=== PATIENT | female | born 1985 | race Caucasian/White ===

== ENCOUNTER 2018-10-14 19:53 | Emergency (ER) | payer OTHER ==
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
[2018-10-14] MEDS ORDERED: NA CHLORIDE 0.9% 1,000 ML ONE (22:38)
[2018-10-14] MEDS ORDERED: ONDANSETRON 4 MG/2 ML VIAL ONE (22:38)
[2018-10-14] MEDS ORDERED: TETANUS & DIPHTHERIA TOX,ADULT 0.5 ML VIAL ONE (22:38)
[2018-10-14] MEDS ORDERED: FENTANYL CITR 100 MCG/2 ML ONE (22:38)
[2018-10-14 23:01] LABS: Absolute Lymphocytes (CBC) 2.5 K/uL (0.7-4.9); Basophils % 0.5 % (0-1.3); Hematocrit 32.2 % (36.0-45.0); Lymphocytes % 28.1 % (15.3-44.8); MPV 7.8 fL (7.6-11.3)
[2018-10-14] MEDS ORDERED: CEFAZOLIN/SWI 1gm 0 GM/0 ML SYR ONE (23:12)
[2018-10-14 23:13] LABS: Potassium 3.7 mmol/L (3.5-5.1)
[2018-10-14] MEDS ORDERED: CEFAZOLIN SODIUM 1 GM/VIAL ONE (23:21)
[2018-10-14] MEDS ORDERED: NA CHLORIDE 0.9% 50 ML IV ONE (23:21)
[2018-10-15 00:06] LABS: Urine Blood 2+ (NEG); Urine Glucose NEGATIVE (NEG); Urine Protein NEGATIVE (NEG); Urine Specific Gravity <1.005 (1.005-1.030)
[2018-10-15] MEDS ORDERED: ONDANSETRON 4 MG/2 ML VIAL ONE (00:40)
[2018-10-15] MEDS ORDERED: FENTANYL CITR 100 MCG/2 ML ONE (00:40)
[2018-10-15] MEDS ORDERED: KETAMINE HCL 500 MG/5 ML VIAL ONE (00:42)
[2018-10-15] MEDS ORDERED: HYDROMORPHONE HCL 1 MG/ML INJ ONE (01:29)
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
[2018-10-15 02:40] VITALS: O2SAT 100
[2018-10-15 02:44] VITALS: TEMP 98.7
[2018-10-15 02:45] VITALS: BP 114/86
--- NOTE | 2018-10-15 08:23 | RAD REPORT ---
EXAM DESCRIPTION: RAD - Foot Left 3 View - 10/14/2018 10:49 pm CLINICAL HISTORY: PAIN Pain and swelling left leg COMPARISON: None FINDINGS: Left tibia/ fibula and foot - multiple projections are submitted Moderate soft tissue swelling is seen along the dorsum of the foot. No acute fracture or dislocation is seen. No radiopaque foreign body.
--- NOTE | 2018-10-15 10:18 | RAD REPORT ---
EXAM DESCRIPTION: RAD - Tib Fib Left - 10/14/2018 10:49 pm CLINICAL HISTORY: PAIN Pain and swelling left leg COMPARISON: None FINDINGS: Left tibia/ fibula and foot - multiple projections are submitted Moderate soft tissue swelling is seen along the dorsum of the foot. No acute fracture or dislocation is seen. No radiopaque foreign body.
== END 2018-10-15 02:24 | disposition home or self-care (01) ==
LOC: ER 19:53
PROC: 2W3RX1Z Immobilization of Left Lower Leg using Splint (ICD-10-PCS; principal; 2018-10-15)
DX: S92.151A Displaced avulsion fracture (chip fracture) of right talus, initial encounter for closed fracture (principal); S87.81XA Crushing injury of right lower leg, initial encounter; V03.90XA Pedestrian on foot injured in collision with car, pick-up truck or van, unspecified whether traffic or nontraffic accident, initial encounter; Y93.9 Activity, unspecified; Y92.9 Unspecified place or not applicable; F17.210 Nicotine dependence, cigarettes, uncomplicated; Z23 Encounter for immunization
CPT/HCPCS: 96365; 85025; 80048; 36415; 82550; 81003; 73630; 73590; 90471; 90714; 96375; 99284; 29515; J3010 ×2; J1170; J7030; J2405 ×2; J0690

== ENCOUNTER 2018-10-25 20:50 | Emergency (ER) | payer OTHER ==
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
--- OUTSIDE RECORDS SUMMARY | 2018-10-25 20:56 | XMS REPORT | Summary of Care ---
:1985 Author Organization [facility] Address [address] [place] [id number]- Encounter HQ Serge_pierce(FIN) [id number] Date(s): 06/13/15 - 06/13/[address] Professional Services provided by [facility] [place] [address]- Discharge Disposition: Home Attending Physician: Lj Ford MD Admitting Physician: Lj Ford MD Vital Signs Most recent to oldest [Reference Range]: 1 Height 160.02 cm (06/13/15 7:51 PM) Blood Pressure [90-140/60-90 mmHg] 112/67 mmHg (06/13/15 8:22 PM) Weight 59.091 kg (06/13/15 7:51 PM) Body Mass Index 23.08 m2 (06/13/15 7:51 PM) Problem List Condition Effective Dates Status Health Status Informant Chlamydia(Confirmed) Resolved Chronic anemia(Confirmed) Resolved Depression(Confirmed) Resolved (Confirmed) 01/20/13 - 2013 Resolved (Confirmed) 06/13/15 Active (Confirmed) 02/26/08 - 12/02/08 Resolved (Confirmed) 01/20/14 - 2014 Resolved (Confirmed) 01/20/132013 Resolved (Confirmed) 10/23/06 - 07/16/07 Resolved (Confirmed) 12/27/03 - 09/11/04 Resolved Allergies, Adverse Reactions, Alerts Substance Reaction Severity Status NKDA Active Medications No Known Medications Results No data available for this section Immunizations No data available for this section Procedures No data available for this section Social History Social History Type Response Alcohol Previous treatment: None.1 Smoking Status Never smoker; Exposure to Tobacco Smoke None; Cigarette Smoking Last 365 Days No; Reg Smoking Cessation Counseling No 1pt said is only social drink , she dennnies being alcoholic Assessment and Plan Extracted from: Title: OB H&P Author: Francoise Nair MD Date: 06/13/15 Impression and Plan A/P: 30yo at 39w0d dated by LMP and rep 1T luiso presents to triage c/o ctx 1. Latent labor: cervix is 4/50/-3 which is unchagned from clinic visit today per pt. Normal NOAH. BP normal range. Pt would like to go to [place] where her doctor delivers. 2. Reactive NST 3. Pt was discussed with Dr. Mcpherson. Discharge to home. Pt was given labor precautions. Francoise Nair, PGY3
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
--- OUTSIDE RECORDS SUMMARY | 2018-10-25 20:56 | XMS REPORT | Summary of Care ---
:1985 Author Organization [facility] Address [address] [place] [id number]- Encounter HQ Mekhintr_pierce(FIN) [id number] Date(s): 12/02/14 - 12/02/[address] Professional Services provided by [facility] [place] [address]- Discharge Diagnosis: Abdominal pain, lower Discharge Disposition: Home Attending Physician: Diana Torres MD Vital Signs Most recent to oldest [Reference Range]: 1 2 3 Height 160.02 cm (12/02/14 4:49 PM) Most recent to oldest 1 2 3 [Reference Range]: Temperature Oral [96.4-99.1 98 DegF 97.8 DegF 97.9 DegF DegF] (12/02/14 8:40 PM) (12/02/14 7:10 PM) (12/02/14 4:49 PM) Most recent to oldest [Reference Range]: 1 2 3 Blood Pressure [90-140/60-90 mmHg] 101/68 mmHg 116/71 mmHg (12/02/14 8:40 PM) (12/02/14 4:49 PM) Systolic Blood Pressure [90-140 mmHg] 119 mmHg (12/02/14 7:10 PM) Most recent to oldest [Reference Range]: 1 2 3 Diastolic Blood Pressure [60-90 mmHg] 69 mmHg (12/02/14 7:10 PM) Most recent to oldest 1 2 3 [Reference Range]: Respiratory Rate [14-20 18 BRMIN 18 BRMIN 20 BRMIN BRMIN] (12/02/14 8:40 PM) (12/02/14 7:10 PM) (12/02/14 4:49 PM) Most recent to oldest 1 2 3 [Reference Range]: Peripheral Pulse Rate 77 bpm 88 bpm 101 bpm [60-100 bpm] (12/02/14 8:40 PM) (12/02/14 7:10 PM) *HI* (12/02/14 4:49 PM) Most recent to oldest [Reference Range]: 1 2 3 Weight 50 kg (12/02/14 4:49 PM) Most recent to oldest [Reference Range]: 1 2 3 Body Mass Index 19.53 m2 (12/02/14 4:49 PM) Problem List Condition Effective Dates Status Health Status Informant Chronic anemia(Confirmed) Resolved Depression(Confirmed) Resolved Allergies, Adverse Reactions, Alerts Substance Reaction Severity Status NKDA Active Medications acetaminophen 650 mg, Route: PO, Drug form: TAB, ONCE, Dosing Weight 50, kg, Priority: STAT, Start date: 12/02/14 18:23:00, Stop date: 12/02/14 18:23:00 Start Date: 12/02/14 Stop Date: 12/02/14 Status: Completed Results URINE CHEM Most recent to oldest [Reference Range]: 1 U Preg [Negative] Positive *ABN* (12/02/14 7:01 PM) URINE AND STOOL Most recent to oldest [Reference Range]: 1 UA Turbidity [Clear] Clear (12/02/14 7:01 PM) UA Color [Yellow] Yellow *NA* (12/02/14 7:01 PM) UA pH [5.0-8.0] 6.0 (12/02/14 7:01 PM) UA Spec Grav [<=1.030] 1.020 (12/02/14 7:01 PM) UA Glucose [Negative mg/dL] Negative mg/dL (12/02/14 7:01 PM) UA Blood [Negative] Negative (12/02/14 7:01 PM) UA Ketones [Negative mg/dL] Negative mg/dL *NA* (12/02/14 7:01 PM) UA Protein [Negative mg/dL] Negative mg/dL (12/02/14 7:01 PM) UA Urobilinogen [0.1-1.0 EU/dL] 0.2 EU/dL (12/02/14 7:01 PM) UA Bili [Negative] Negative *NA* (12/02/14 7:01 PM) UA Leuk Est [Negative] Negative (12/02/14 7:01 PM) UA Nitrite [Negative] Negative (12/02/14 7:01 PM) UA WBC [None Seen /HPF] 0-2 /HPF (12/02/14 7:01 PM) UA RBC [0-2] None Seen (12/02/14 7:01 PM) UA Bacteria [None Seen /HPF] Occasional /HPF (12/02/14 7:01 PM) UA Sq Epi [Few /LPF] Few /LPF (12/02/14 7:01 PM) UA Mucus [None Seen /LPF] Few /LPF (12/02/14 7:01 PM) Micro? Not Indicated *NA* (12/02/14 7:01 PM) Immunizations No data available for this section Procedures No data available for this section Social History Social History Type Response Alcohol Previous treatment: None.1 Smoking Status Current every day smoker; Type: Cigarettes; Tobacco use per day : 1; Number of years: 2; Total pack years: 2; Started at age: 26.0; Stopped at age: 2; Previous treatment: None; Ready to change: No; Concerns about tobacco use in household: No; Exposure to Tobacco Smoke Unable to obtain; Cigarette Smoking Last 365 Days Yes; Reg Smoking Cessation Counseling No 1pt said is only social drink , she dennnies being alcoholic Assessment and Plan No data available for this section
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
--- OUTSIDE RECORDS SUMMARY | 2018-10-25 20:56 | XMS REPORT | Summary of Care ---
:1985 Author Organization [facility] Address [address] [place] [id number]- Encounter HQ Encntr_alidaphne(FIN) [id number] Date(s): 08/12/17 - 08/13/[address] Professional Services provided by [facility] [place] [address]- Discharge Disposition: Left Without Being Seen Attending Physician: Federico Wseley DO Vital Signs Most recent to oldest [Reference Range]: 1 Height 160.02 cm (08/12/17 8:34 PM) Temperature Oral [96.4-99.1 DegF] 97.5 DegF (08/12/17 8:34 PM) Blood Pressure [90-140/60-90 mmHg] 122/76 mmHg (08/12/17 8:34 PM) Respiratory Rate [14-20 BRMIN] 18 BRMIN (08/12/17 8:34 PM) Peripheral Pulse Rate [60-100 bpm] 105 bpm *HI* (08/12/17 8:34 PM) Weight 56.818 kg (08/12/17 8:34 PM) Body Mass Index 22.19 m2 (08/12/17 8:34 PM) Problem List Condition Effective Dates Status Health Status Informant Chlamydia(Confirmed) Resolved Chronic anemia(Confirmed) Resolved Depression(Confirmed) Resolved (Confirmed) 01/20/13 - 2013 Resolved (Confirmed) 06/13/15 - 08/24/15 9:10 AM Resolved (Confirmed) 02/26/08 - 12/02/08 Resolved (Confirmed) 01/20/14 - 2014 Resolved (Confirmed) 01/20/132013 Resolved (Confirmed) 10/23/06 - 07/16/07 Resolved (Confirmed) 12/27/03 - 09/11/04 Resolved Allergies, Adverse Reactions, Alerts Substance Reaction Severity Status penicillins Active Medications No data available for this section Results No data available for this section [...] 26.0; Stopped at age: 2; entered on: 08/10/17 1pt said is only social drink , she dennnies being alcoholic Assessment and Plan No data available for this section
--- OUTSIDE RECORDS SUMMARY | 2018-10-25 20:56 | XMS REPORT ---
:1985 Author Organization [facility] Address [address] [place] [address] Dr. Truong[address] [place] [id number] Care Team Providers Name Role Phone Unavailable Unavailable Unavailable Problems This patient has no known problems. Allergies, Adverse Reactions, Alerts This patient has no known allergies or adverse reactions. Medications This patient has no known medications.
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
--- OUTSIDE RECORDS SUMMARY | 2018-10-25 20:56 | XMS REPORT | Summary of Care ---
:1985 Author Organization [facility] Address [address] [place] [id number] Encounter HQ Encntr_alias(FIN) [id number] Date(s): 08/10/17 - 08/11/[address] Professional Services provided by [facility] [place] [address]- Encounter Diagnosis Exposed orthopaedic hardware (Discharge Diagnosis) - 08/10/17 Discharge Disposition: Home or Self Care Attending Physician: Tori Flores MD Vital Signs Most recent to oldest 1 2 3 [Reference Range]: Height 160.02 cm (08/10/17 7:50 PM) Temperature Oral [96.4-99.1 98.2 DegF 98.4 DegF 98.9 DegF DegF] (08/11/17 1:22 AM) (08/10/17 9:21 PM) (08/10/17 7:50 PM) Blood Pressure [90-140/60-90 105/68 mmHg 107/62 mmHg 105/68 mmHg mmHg] (08/11/17 1:22 AM) (08/10/17 11:20 PM) (08/10/17 9:21 PM) Respiratory Rate [14-20 BRMIN] 18 BRMIN 18 BRMIN 18 BRMIN (08/11/17 1:22 AM) (08/10/17 11:20 PM) (08/10/17 9:21 PM) Peripheral Pulse Rate [60-100 84 bpm 76 bpm 70 bpm bpm] (08/11/17 1:22 AM) (08/10/17 11:20 PM) (08/10/17 9:21 PM) Weight 54.545 kg (08/10/17 7:50 PM) Body Mass Index 21.3 m2 (08/10/17 7:50 PM) Problem List Condition Effective Dates Status Health Status Informant Chlamydia(Confirmed) Resolved Chronic anemia(Confirmed) Resolved Depression(Confirmed) Resolved (Confirmed) 01/20/13 - 2013 Resolved (Confirmed) 06/13/15 - 08/24/15 9:10 AM Resolved (Confirmed) 02/26/08 - 12/02/08 Resolved (Confirmed) 01/20/14 - 2014 Resolved (Confirmed) 01/20/132013 Resolved (Confirmed) 10/23/06 - 07/16/07 Resolved (Confirmed) 12/27/03 - 09/11/04 Resolved Allergies, Adverse Reactions, Alerts Substance Reaction Severity Status penicillins Active Medications clindamycin 300 mg oral capsule 300 mg=1 cap, PO, Q6H, X 14 day, # 56 cap, 0 Refill(s) Start Date: 08/11/17 Stop Date: 08/25/17 Status: Orderedmorphine Sulfate 4 mg, Route: IVP, ONCE, Dosing Weight 54.545, kg, Priority: STAT, Start date: 22:17:00 CDT,Stop date: 08/10/17 22:17:00 CDT Start Date: 08/10/17 Stop Date: 08/10/17 Status: Completedondansetron 4 mg, Route: IVP, Drug form: INJ, ONCE, Dosing Weight 54.545, kg, Priority: STAT , Start date: 08/10/17 22:17:00 CDT, Stop date: 08/10/17 22:17:00 CDT Start Date: 08/10/17 Stop Date: 08/10/17 Status: CompletedPeridex 0.12% topical liquid 0.018 gm=15 mL, PO, BID, swish and spit; do not swallow, # 480 mL, 0 Refill(s) Start Date: 08/11/17 Status: OrderedPeridex 0.12% topical liquid 15 ml, Route: S&SPIT, ONCE, Drug form: LIQ, Start date: 08/10/17 23:05:00 CDT, Stop date: 08/10/17 23:05:00 CDT Notes: (Same As: Peridex) Start Date: 08/10/17 Stop Date: 08/11/17 Status: CompletedUnasyn 3 gm, Route: IVPB, ONCE, Dosing Weight 54.545, kg, Priority: STAT, Start date: 08/10/17 23:04:00 CDT, Stop date: 08/10/17 23:04:00 CDT Start Date: 08/10/17 Stop Date: 08/10/17 Status: Discontinued Results ELECTROLYTES Most recent to oldest [Reference Range]: 1 Sodium Lvl [135-145 mEq/L] 140 mEq/L (08/10/17 10:13 PM) Potassium Lvl [3.5-5.1 mEq/L] 3.7 mEq/L (08/10/17 10:13 PM) Chloride Lvl [95-109 mEq/L] 104 mEq/L (08/10/17 10:13 PM) CO2 [24-32 mEq/L] 24 mEq/L (08/10/17 10:13 PM) AGAP [10.0-20.0 mEq/L] 15.7 mEq/L (08/10/17 10:13 PM) CHEM PANEL Most recent to oldest [Reference Range]: 1 Creatinine Lvl [0.50-1.40 mg/dL] 1.10 mg/dL (08/10/17 10:13 PM) eGFR 68 mL/min/1.73m2 1 *NA* (08/10/17 10:13 PM) BUN [7-22 mg/dL] 14 mg/dL (08/10/17 10:13 PM) Glucose Lvl [70-99 mg/dL] 89 mg/dL (08/10/17 10:13 PM) Calcium Lvl [8.5-10.5 mg/dL] 9.0 mg/dL (08/10/17 10:13 PM) 1Result Comment: The eGFR is calculated [...] eGFR should be multiplied by the estimated BMI.URINE CHEM Most recent to oldest [Reference Range]: 1 U Preg [Negative] Negative (08/11/17 12:08 AM) URINE AND STOOL Most recent to oldest [Reference Range]: 1 UA Turbidity [Clear] Slight Cloudy (08/11/17 12:08 AM) UA Color [Yellow] Yellow *NA* (08/11/17 12:08 AM) UA pH [5.0-8.0] 6.0 (08/11/17 12:08 AM) UA Spec Grav [<=1.030] <=1.005 *NA* (08/11/17 12:08 AM) UA Glucose [Negative] Negative (08/11/17 12:08 AM) UA Blood [Negative] Moderate *ABN* (08/11/17 12:08 AM) UA Ketones [Negative] Trace *ABN* (08/11/17 12:08 AM) UA Protein [Negative] Negative (08/11/17 12:08 AM) UA Urobilinogen [0.1-1.0 EU/dL] 0.2 EU/dL (08/11/17 12:08 AM) UA Bili [Negative] Negative *NA* (08/11/17 12:08 AM) UA Leuk Est [Negative] Negative (08/11/17 12:08 AM) UA Nitrite [Negative] Negative (08/11/17 12:08 AM) UA WBC [None Seen /HPF] 0-2 /HPF (08/11/17 12:08 AM) UA RBC [0-2 /HPF] 0-2 /HPF (08/11/17 12:08 AM) UA Bacteria [None Seen /HPF] Occasional /HPF (08/11/17 12:08 AM) UA Sq Epi [Few /LPF] Moderate /LPF *ABN* (08/11/17 12:08 AM) UA Mucus Occasional *NA* (08/11/17 12:08 AM) HEMATOLOGY Most recent to oldest [Reference Range]: 1 WBC [3.7-10.4 K/CMM] 7.7 K/CMM (08/10/17 10:13 PM) RBC [4.20-5.40 M/CMM] 5.26 M/CMM (08/10/17 10:13 PM) Hgb [12.0-16.0 g/dL] 14.8 g/dL (08/10/17 10:13 PM) Hct [36.0-48.0 %] 44.6 % (08/10/17 10:13 PM) MCV [80.0-98.0 fL] 84.8 fL (08/10/17 10:13 PM) MCH [27.0-31.0 pg] 28.2 pg (08/10/17 10:13 PM) MCHC [32.0-36.0 g/dL] 33.3 g/dL (08/10/17 10:13 PM) RDW [11.5-14.5 %] 15.3 % *HI* (08/10/17 10:13 PM) MPV [7.4-10.4 fL] 7.0 fL *LOW* (08/10/17 10:13 PM) Platelet [133-450 K/CMM] 224 K/CMM (08/10/17 10:13 PM) Segs [45.0-75.0 %] 50.5 % (08/10/17 10:13 PM) Lymphocytes [20.0-40.0 %] 41.9 % *HI* (08/10/17 10:13 PM) Monocytes [2.0-12.0 %] 5.6 % (08/10/17 10:13 PM) Eosinophils [0.0-4.0 %] 1.4 % (08/10/17 10:13 PM) Basophils [0.0-1.0 %] 0.6 % (08/10/17 10:13 PM) Segs-Bands # [1.5-8.1 K/CMM] 3.9 K/CMM (08/10/17 10:13 PM) Lymphocytes # [1.0-5.5 K/CMM] 3.2 K/CMM (08/10/17 10:13 PM) Monocytes # [0.0-0.8 K/CMM] 0.4 K/CMM (08/10/17 10:13 PM) Eosinophils # [0.0-0.5 K/CMM] 0.1 K/CMM (08/10/17 10:13 PM) PT [12.0-14.7 seconds] 13.5 seconds (08/10/17 10:13 PM) INR [0.85-1.17] 1.03 (08/10/17 10:13 PM) PTT [22.9-35.8 seconds] 31.0 seconds (08/10/17 10:13 PM) Immunizations No data available for this section Procedures No data available for this section Social History Social History Type Response Alcohol Previous treatment: None.1 Smoking Status Current every day smoker; Type: Cigarettes; Previous treatment : None; Ready to change: No; Concerns about tobacco use in household: No; Exposure to Tobacco Smoke Unable to obtain; Cigarette Smoking Last 365 Days Yes ; [place] Cessation Counseling No; Tobacco use per day: 1; Number of years: 2; Total pack years: 2; Started at age: 26.0; Stopped at age: 2; entered on: 08/10/17 1pt said is only social drink , she dennnies being alcoholic Assessment and Plan No data available for this section
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
[2018-10-25] MEDS ORDERED: HYDROCODONE/APAP 10/325 TAB ONE (23:29)
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
--- NOTE | 2018-10-25 23:51 | EDPHYS ---
Physician Documentation [facility] Name: David Lira Age: 33 yrs Sex: Female : 1985 Arrival Date: 10/25/2018 Time: 20:55 Bed 13 Private MD: ED Physician Bunny Camp HPI: 10/25 23:36 This 33 yrs old Female presents to ER via Wheelchair with complaints of Leg gs Infection. 23:36 The complaints affect the left russell and anterior aspect of left ankle. Context: INJURY gs 12 DAYS AGO AVULSION FRACTURE LEFT TALUS, FULL THICKNESS ABRASION FROM FOOT TO LEG, DRAINAGE FORM WOUND AROUND ANKLE NO FEVER PAIN. Onset: The symptoms/episode began/occurred 12 day(s) ago. Associated signs and symptoms: Pertinent negatives fever, numbness, warmth. Severity of symptoms: At their worst the symptoms were severe, in the emergency department the symptoms are unchanged. 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 - Social history:: Smoking status: Patient uses tobacco products, smokes one-half pack cigarettes per day. - Ebola Screening: : Patient denies travel to an Ebola-affected area in the 21 days before illness onset. ROS: 23:36 All other systems are negative. gs Exam: 23:36 Head/Face: Normocephalic, atraumatic. Eyes: Pupils equal round and reactive to light, gs extra-ocular motions intact. Lids and lashes normal. Conjunctiva and sclera are non-icteric and not injected. Cornea within normal limits. Periorbital areas with no swelling, redness, or edema. ENT: Nares patent. No nasal discharge, no septal abnormalities noted. Tympanic membranes are normal and external auditory canals are clear. Oropharynx with no redness, swelling, or masses, exudates, or evidence of obstruction, uvula midline. Mucous membranes moist. Neck: Trachea midline, no thyromegaly or masses palpated, and no cervical lymphadenopathy. Supple, full range of motion without nuchal rigidity, or vertebral point tenderness. No Meningismus. Chest/axilla: Normal chest wall appearance and motion. Nontender with no deformity. No lesions are appreciated. Cardiovascular: Regular rate and rhythm with a normal S1 and S2. No gallops, murmurs, or rubs. Normal PMI, no JVD. No pulse deficits. Respiratory: Lungs have equal breath sounds bilaterally, clear to auscultation and percussion. No rales, rhonchi or wheezes noted. No increased work of breathing, no retractions or nasal flaring. Abdomen/GI: Soft, non-tender, with normal bowel sounds. No distension or tympany. No guarding or rebound. No evidence of tenderness throughout. Back: No spinal tenderness. No costovertebral tenderness. Full range of motion. Neuro: Awake and alert, GCS 15, oriented to person, place, time, and situation. Cranial nerves II-XII grossly intact. Motor strength 5/5 in all extremities. Sensory grossly intact. Cerebellar exam normal. Normal gait. 23:36 Constitutional: The patient appears alert, awake, uncomfortable. 23:36 Musculoskeletal/extremity: Extremities: noted in the dorsum of left foot: swelling, Pulses: TRIPHASIC PULSES DOPPLERED DP AND PT. 23:36 Skin: injury, abrasion(s), large abrasion noted, SEVERE PARTIAL AND SOME FULL THICKNESS, AREA ON LEG IS DRY AND GRANULATING WELL OVER ANKLE AND FOOT FIBRINOUS EXUDATE IS MILDLY SOUPY AND NOT GRANULATING WELL. Vital Signs: 21:22 BP 147 / 90; Pulse 85; Resp 18; Temp 98.2; Pulse Ox 100% on R/A; Weight 54.43 kg (R); aj1 Height 5 ft. 4 in. (162.56 cm) (R); Pain 10/10; 22:30 BP 147 / 86; Pulse 71; Resp 18; Pulse Ox 100% ; ea 23:50 BP 115 / 92; Pulse 85; Resp 18; Temp 98; Pulse Ox 99% ; ea 21:22 Body Mass Index 20.60 (54.43 kg, 162.56 cm) aj1 MDM: 23:04 Patient medically screened. gs 23:36 Differential diagnosis: CELLULITIS, FULL THICKNESS ABRASION. Data reviewed: vital gs signs, nurses notes. Counseling: I had a detailed discussion with the patient and/or guardian regarding: the historical points, exam findings, and any diagnostic results supporting the discharge/admit diagnosis, the need for outpatient follow up, a plastic surgeon, PT NEED AT THE VERY LEAST WOUND CARE AND POSSIBLY SKIN GRAFT DR HERNANDEZ WILL SEE IN OFFICE IN AM, WILL DECIDE SURGERY V. WOUND CARE I WILL PUT ON ABX IN MEANTIME.. Administered Medications: 23:31 Drug: [place] 10 mg-325 mg 1 tabs {Note: RASS 1.} Route: PO; ea 10/26 00:00 Follow up: Response: No adverse reaction; Pain is decreased; RASS: Restless (+1) 10/25 23:56 Drug: KeFLEX 1000 mg Route: PO; ea 10/26 00:00 Follow up: Response: Medication administered at discharge. Disposition: 10/25/18 23:50 Discharged to Home. Impression: FULL THICKNESS ABBRASION WITH CELLULITIS. - Condition is Stable. - Discharge Instructions: Form - Return To School, Wound Infection, Usxu-ru-Drog, Mechanical Wound Debridement. - Prescriptions for Keflex 500 mg Oral Capsule - take 1 capsule by ORAL route every 8 hours for 10 days; 30 capsule. Tylenol- Codeine #4 300-60 mg Oral Tablet - take 1 tablet by ORAL route every 6 hours As needed; 12 tablet. - School release form, Medication Reconciliation Form, Thank You Letter, Antibiotic Education, Prescription Opioid Use form. - Follow up: Miguel Angel Hernandez MD; When: 2 - 3 days; Reason: Re-evaluation by your physician. Signatures: Emma Villeda RN RN aj1 Stephany Cuellar RN RN ea Starr, Gregory, MD MD Corrections: (The following items were deleted from the chart) 00:12 10/25 23:50 10/25/2018 23:50 Discharged to Home. Impression: FULL THICKNESS ABBRASION ea WITH CELLULITIS. Condition is Stable. Forms are Medication Reconciliation Form, Thank You Letter, Antibiotic Education, Prescription Opioid Use. Follow up: Miguel Angel Hernandez; When: 2 - 3 days; Reason: Re-evaluation by your physician. gs
[2018-10-25] MEDS ORDERED: CEPHALEXIN 250 MG CAP ONE (23:55)
[2018-10-26 11:25] VITALS: BP 115/92; TEMP 98; O2SAT 99
== END 2018-10-26 00:12 | disposition home or self-care (01) ==
LOC: ER 20:50
DX: L03.116 Cellulitis of left lower limb (principal); F17.210 Nicotine dependence, cigarettes, uncomplicated
CPT/HCPCS: 99284

== ENCOUNTER 2019-01-02 14:07 | Emergency (ER) | payer OTHER ==
--- OUTSIDE RECORDS SUMMARY | 2019-01-02 14:11 | XMS REPORT ---
:1985 [facility] Address [address] [place] [address] [address] Care Team Providers Name Role Phone Unavailable Unavailable Unavailable Problems This patient has no known problems. Allergies, Adverse Reactions, Alerts This patient has no known allergies or adverse reactions. Medications This patient has no known medications. Encounters Start End Encounter Admission Attending Care Care Encounter Date/Time Date/Time Type Type Clinicians Facility Department ID 2017-05-18 2017-05-18 Emergency [facility] [id number] 21:12:59 21:12:59 2017-05-18 2017-05-18 Emergency [facility] [id number] 20:57:00 20:57:00
--- OUTSIDE RECORDS SUMMARY | 2019-01-02 14:11 | XMS REPORT | Summary of Care ---
:1985 Author Organization [facility] Address [address] [place] [id number] Care Team Providers Name Role Phone Pcp, Patient Does Not Have A Primary Care Provider Reason for Referral Radiology Services (STAT) Status Reason Specialty Diagnoses / Referred By Referred To Procedures Contact Contact New Request Diagnostic Diagnoses Pain [place], [place] Radiology Procedures XR TIBIA FIBULA 2 VW LEFT MD Iggy [address] [place] [address] Radiology Services (STAT) Status Reason Specialty Diagnoses / Referred By Referred To Procedures Contact Contact New Request Diagnostic Diagnoses Pain [place], [place] Radiology Procedures XR FOOT 3+ VW LEFT MD Igg[address] [place] [address] Radiology Services (STAT) Status Reason Specialty Diagnoses / Referred By Referred To Procedures Contact Contact New Request Diagnostic Diagnoses Pain [place], [place] Radiology Procedures XR TIBIA FIBULA 2 VW LEFT MD [address]y [address] [place] [phone] Radiology Services (STAT) Status Reason Specialty Diagnoses / Referred By Referred To Procedures Contact Contact New Request Diagnostic Diagnoses Pain [place], [place] Radiology Procedures XR FOOT 3+ VW LEFT MD Iggy [address] [place] [phone] Reason for Visit Reason Comments Leg Pain Encounter Details Date Type Department Care Team Description 10/27/2018 - Emergency ADC-Emergency Lexx Jiménez, Pain (Primary Dx); 10/28/2018 Department MD Healing scar; [address] [place] [address] Injury of left ankle, subsequent encounter; [place] [address] [id number] Crushing injury of left foot, subsequent encounter [phone] [facility] [place] [address] [phone] Allergies Active Allergy Reactions Severity Noted Date Comments Penicillin G Rash 06/16/2015 Penicillins Rash 05/04/2007 documented as of this encounter (statuses as of 10/28/2018) Medications Medication Sig Dispensed Refills Start Date [...] Rh negative state in antepartum period, Liveborn infant, of monet , born in [...] Abrasion of left lower leg, initial encounter traMADol (ULTRAM) 50 Take 1 tablet by 20 tablet 0 10/28/2018 Active mg tabletIndications: mouth every 6 Injury of left ankle, (six) hours as subsequent encounter, needed for Pain Crushing injury of (scale 7-10). left foot, subsequent encounter documented as of this encounter (statuses as of 10/28/2018) Active Problems Problem Noted Date 38 weeks gestation of 06/26/2018 Rh negative state in antepartum period 06/26/2018 Liveborn , of monet , born in hospital by vaginal 2018 delivery Normal labor 06/16/2015 Normal delivery 07/16/2007 Counseling on substance use and abuse 05/14/2007 Other sign and symptom in breast 05/14/2007 Personal history of tobacco use, presenting hazards to health 05/14/2007 High-risk 05/14/2007 Overview: ICD10 Diagnosis Term Clinical Mental Health Counselor Utility Personal history of allergy to other specified medicinal agents 05/14/2007 Overview: Codeine (rash/urticaria) PCN (rash/urticaria) Rhesus isoimmunization affecting management of mother, antepartum 05/04/2007 condition documented as of this encounter (statuses as of 10/28/2018) Resolved Problems Problem Noted Date Resolved Date Premature delivery before 37 weeks 03/12/2016 06/26/2018 demise > 22 weeks, delivered, current hospitalization 03/12/20162018 Urinary tract infection, site not specified 05/14/2007 06/26/2018 Cannabis dependence, episodic 05/14/2007 06/26/2018 Chlamydia trachomatis infection of anus and rectum 05/14/2007 06/26/2018 Antepartum drug dependence 05/14/2007 06/26/2018 Overview: ICD10 Diagnosis Term Clinical Mental Health Counselor Utility Nausea without vomiting 05/14/2007 06/26/2018 Overview: ICD10 Diagnosis Term Clinical Mental Health Counselor Utility Nausea with vomiting 05/14/2007 06/26/2018 Supervision of other normal 05/14/2007 06/26/2018 Surveillance of previously prescribed intrauterine 05/14/2007 06/26/2018 contraceptive device Hemorrhage in early , antepartum 05/04/2007 06/26/2018 Overview: ICD10 Diagnosis Term Clinical Mental Health Counselor Utility Chlamydia trachomatis infection of lower genitourinary sites 05/04/200706/26 Threatened premature labor, antepartum(644.03) 05/04/2007 06/26/2018 Vaginitis and vulvovaginitis 05/04/2007 06/26/2018 Overview: ICD10 Diagnosis Term Clinical Mental Health Counselor Utility documented as of this encounter (statuses as of 10/28/2018) Immunizations Name Administration Dates Next Due Influenza [...] Sign Reading Time Taken Comments Blood Pressure 123/76 10/27/2018 11:30 PM CDT Pulse 93 10/27/2018 11:30 PM CDT Temperature 37 C (98.6 F) 10/27/2018 9:27 PM CDT Respiratory Rate 20 10/27/2018 11:30 PM CDT Oxygen Saturation 100% 10/27/2018 11:30 PM CDT Inhaled Oxygen Concentration - - Weight 54.4 kg (120 lb) 10/27/2018 9:27 PM CDT Height - - Body Mass Index 21.26 08/24/2018 2:49 PM CDT documented in this encounter Discharge Instructions Lexx Novak MD - 10/28/2018 DIAGNOSIS Diagnoses that have been ruled out: None Diagnoses that are still under consideration: None Final diagnoses: Pain Healing scar Injury of left ankle, subsequent encounter Crushing injury of left foot, subsequent encounter NO LIFE-THREATENING FINDINGS ON TODAY'S EXAM. PROCEDURES IN THE ER TODAY: Orders Placed This Encounter Procedures XR FOOT 3+ VW LEFT XR TIBIA FIBULA 2 VW LEFT MEDICATIONS ADMINISTERED IN THE ER TODAY AND DISCHARGE MEDICATIONS: Orders Placed This Encounter Medications HYDROcodone-acetaminophen (NORCO) 10-325 mg tablet 1 tablet traMADol (ULTRAM) 50 mg tablet FOLLOW-UP RECOMMENDATIONS: RECOMMEND FOLLOW-UP WITH YOUR PRIMARY CARE PROVIDER OR WITH DR CISSE, ORTHOPEDIC BULK SEALER RETURN TO ER FOR WORSENING OF SYMPTOMS documented in this encounter Plan of Treatment Date Type Specialty Care Team Description 11/23/2018 Office Visit Obstetrics & Gynecology Aurea Martínez MD [address] [place] [address] [address] [place] [address] [phone] 12/30/2018 Office Visit Obstetrics & Gynecology Aurea Martínez MD [address] [place] [address] [address] [place], [place] [address] Name Type Priority Associated Diagnoses Date/Time XR FOOT 3+ VW LEFT IMAGING STAT Pain 10/27/2018 10:49 PM CDT XR TIBIA FIBULA 2 VW IMAGING STAT Pain 10/27/2018 10:49 PM CDT LEFT Health Maintenance Due Date Last Done Comments PNEUMOCOCCAL 0-64 YEARS COMBINED 05/07/1993 SERIES (1 of 1 - PPSV23) VARICELLA VACCINES (1 of 2 - 13+ 05/07/2000 2-dose series) DTaP,Tdap,and Td Vaccines (1 - 05/07/2006 Tdap) PAP SMEAR 08/24/2011 08/23/2008, 12/05/2006, 07/19/2004, Additional history exists INFLUENZA VACCINE (#1) 2018 05/05/2007 documented as of this encounter Procedures Procedure Name Priority Date/Time Associated Diagnosis Comments XR TIBIA FIBULA 2 VW STAT 10/27/2018 10:49 PM CDT Pain LEFT Procedure Note - [facility], Radiant Results Inft User - 10/27/2018 11:13 PM CDT EXAM: XR TIBIA FIBULA 2 VW LEFT, XR FOOT 3+ VW LEFT HISTORY: injury COMPARISON: 10/11/2018 to the radiograph FINDINGS: Radiographs of the left tibia, fibula, and foot demonstrate no acute fracture or dislocation. The joint spaces are maintained. Splinting of the lower leg/foot is noted which limits evaluation for subtle abnormalities. No soft tissue abnormality is seen. IMPRESSION No acute bony abnormality. XR FOOT 3+ VW LEFT STAT 10/27/2018 10:49 PM CDT Pain Procedure Note - [facility], Radiant Results Inft User - 10/27/2018 11:13 PM CDT EXAM: XR TIBIA FIBULA 2 VW LEFT, XR FOOT 3+ VW LEFT HISTORY: injury COMPARISON: 10/11/2018 to the radiograph FINDINGS: Radiographs of the left tibia, fibula, and foot demonstrate no acute fracture or dislocation. The joint spaces are maintained. Splinting of the lower leg/foot is noted which limits evaluation for subtle abnormalities. No soft tissue abnormality is seen. IMPRESSION No acute bony abnormality. documented in this encounter Results Not on filedocumented in this encounter Visit Diagnoses Diagnosis Pain - Primary Generalized pain Healing scar Scar condition and fibrosis of skin Injury of left ankle, subsequent encounter Crushing injury of left foot, subsequent encounter documented in this encounter Administered Medications Medication Order MAR Action Action Date Dose Rate Site cephALEXin (KEFLEX) capsule 500 Given 10/28/2018 12:51 AM CDT 500 mg mg 500 mg, Oral, Q6H, First dose on Fri10/28/18 at 0600, Until Discontinued, LEXA, Reason for Anti-Infective: Empiric Therapy for Suspected Infection, Empiric Therapy Site: Skin / Soft tissue, Duration of therapy: 7 days Medication Order MAR Action Action Date Dose Rate Site HYDROcodone-acetaminophen Given 10/28/2018 12:38 AM CDT 1 tablet (NORCO) 10-325 mg tablet 1 tablet 1 tablet, Oral, ONCE NOW, 1 dose, Fri10/28/18 at 0145, Routine documented in this encounter Insurance Payer Benefit Plan / Subscriber ID Effective Phone Address Type Group [facility] xxxxxxxxx 2015-Pres [address] Medicaid HEALTH CHOICE - HEALTH CHOICE ent [id number] MANAGED MEDICAID [place], [place] [id number] documented as of this encounter
[2019-01-02] MEDS ORDERED: NA CHLORIDE 0.9% 1,000 ML ONE ×2 (15:40→16:21)
[2019-01-02 15:45] LABS: Absolute Lymphocytes (CBC) 1.2 K/uL (0.7-4.9); Basophils % 0.5 % (0-1.3); Hematocrit 24.8 % (36.0-45.0); Lymphocytes % 12.6 % (15.3-44.8)
[2019-01-02 15:57] LABS: Urine Blood 1+ (NEG); Urine Glucose NEGATIVE (NEG); Urine Protein NEGATIVE (NEG); Urine Specific Gravity <1.005 (1.005-1.030)
[2019-01-02 16:02] LABS: Potassium 3.7 mmol/L (3.5-5.1)
[2019-01-02] MEDS ORDERED: CEFTRIAXONE/SWI 1gm 1 GM/10 ML SYR ONE (16:57)
[2019-01-02] MEDS ORDERED: ONDANSETRON 4 MG/2 ML VIAL ONE (17:06)
--- NOTE | 2019-01-02 17:10 | ER ---
Nurse's Notes [facility] Name: David Lira Age: 33 yrs Sex: Female : 1985 Arrival Date: 01/02/2019 Time: 14:10 Bed 13 Private MD: Diagnosis: Anemia, unspecified;Nausea and vomiting;Dehydration;Urinary tract infection, site not specified Presentation: 01/02 14:13 Presenting complaint: Patient states: "I've been feeling really really weak for the aj1 past 2 weeks. I feel like I can't get enough water into me" Patient also reports vomiting, appears pale. Transition of care: patient was not received from another setting of care. 14:13 Method Of Arrival: Ambulatory [facility] 14:14 Onset of symptoms was 2018. Risk Assessment: Do you want to hurt yourself or someone aj1 else? Patient reports no desire to harm self or others. Initial Sepsis Screen: Does the patient meet any 2 criteria? HR > 90 bpm. No. Patient's initial sepsis screen is negative. Does the patient have a suspected source of infection? No. Patient's initial sepsis screen is negative. Care prior to arrival: None. 14:14 Acuity: ROSMERY 3 aj1 Triage Assessment: 14:15 General: Appears in no apparent distress. uncomfortable, Behavior is calm, cooperative, aj1 appropriate for age. Pain: Pain currently is 6 out of 10 on a pain scale. Neuro: Level of Consciousness is awake, alert, obeys commands. Cardiovascular: Patient's skin is warm and dry. Respiratory: Airway is patent Respiratory effort is even, unlabored, Respiratory pattern is regular, symmetrical. CORNETIST: 14:15 LMP N/A - aj1 Historical: - Allergies: 14:15 No Known Allergies; aj1 - Home Meds: 14:15 None [Active]; aj1 - PMHx: 14:15 Asthma; Chronic pain; aj1 - PSHx: 14:15 jaw surgery; aj1 - Immunization history:: Flu vaccine is not up to date. - Social history:: Smoking status: Patient uses tobacco products, smokes one-half pack cigarettes per day. - Ebola Screening: : Patient denies travel to an Ebola-affected area in the 21 days before illness onset. Screenin:04 Abuse screen: Denies threats or abuse. Nutritional screening: No deficits noted. ae4 Tuberculosis screening: No symptoms or risk factors identified. Fall Risk None identified. Assessment: 14:10 General: Appears in no apparent distress. uncomfortable, slender, unkempt, ae4 malnourished, Behavior is calm, cooperative. Pain: Complains of pain in abdomen. Neuro: Level of Consciousness is awake, alert, obeys commands, Oriented to person, place, time, situation, Pupils are dilated. Cardiovascular: Heart tones S1 S2 present skin cool and dry. Respiratory: Airway is patent Trachea midline Respiratory effort is even, unlabored, Respiratory pattern is regular, symmetrical, Breath sounds are clear bilaterally. GI: Reports lower abdominal pain, upper abdominal pain, diarrhea, nausea, vomiting. : No signs and/or symptoms were reported regarding the genitourinary system. EENT: Oral mucosa is dry. Poor dentition noted. Derm: Skin is pale. Musculoskeletal: Reports Generalized weakness. 15:00 Reassessment: Patient and/or family updated on plan of care and expected duration. Pain ae4 level reassessed. 16:59 Reassessment: Patient is alert, oriented x 3, equal unlabored respirations, skin aa5 warm/dry/pink. Pt c/o nausea, WATER PUMPING STATION ENGINEER was notified. . 17:08 Reassessment: Patient is alert, oriented x 3, equal unlabored respirations, skin aa5 warm/dry/pink. Lights dimmed for comfort. Call yung remains within reach. . Vital Signs: 14:15 BP 120 / 69; Pulse 114; Resp 20; Temp 98.1; Pulse Ox 100% on R/A; Weight 53.52 kg (R); aj1 Height 5 ft. 3 in. (160.02 cm) (R); 15:10 BP 123 / 70; Pulse 89; Resp 16; Pulse Ox 100% on R/A; rb1 16:09 BP 121 / 68; Pulse 91; Resp 17; Pulse Ox 99% on R/A; rb1 17:09 BP 122 / 71; Pulse 85; Resp 16; Pulse Ox 100% on R/A; rb1 14:15 Body Mass Index 20.90 (53.52 kg, 160.02 cm) aj1 ED Course: 14:10 Patient arrived in ED. as 14:10 Placed in gown. Bed in low position. Call light in reach. Side rails up X 1. Pulse ox ae4 on. NIBP on. Warm blanket given. 14:14 Triage completed. aj1 14:15 Arm band placed on Patient placed in waiting room, Patient notified of wait time. aj1 14:27 Isa Shields FNP-C [facility]. kb 14:27 Jorge Alberto Nayak MD is Attending Physician. kb 15:11 Maurizio Washburn, SHERRI is Primary Nurse. ae4 15:38 Initial lab(s) drawn, by me, sent to lab. Urine collected: clean catch specimen, jb1 cloudy, christine colored. Inserted saline lock: 22 gauge in right antecubital area, using aseptic technique. Blood collected. 17:46 No provider procedures requiring assistance completed. IV discontinued, intact, rb1 bleeding controlled, No redness/swelling at site. Pressure dressing applied. Administered Medications: 15:45 Drug: NS 0.9% 1000 ml Route: IV; Rate: 1000 ml; Site: right antecubital; ae4 16:23 Follow up: IV Status: Completed infusion rb1 16:25 Drug: NS 0.9% 1000 ml Route: IV; Rate: 1000 ml; Site: right antecubital; ae4 16:59 Drug: Rocephin 1 grams Route: IV; Rate: 1 calculated rate; Site: right antecubital; aa5 17:07 Follow up: Response: No adverse reaction aa5 17:07 Drug: Zofran 4 mg Route: IVP; Site: right antecubital; aa5 17:30 Follow up: Response: No adverse reaction; Nausea is decreased ae4 17:28 Drug: GI Cocktail without - (Maalox Suspension 30 ml, Lidocaine Liquid 2 % 15 rb1 ml) Route: PO; 17:43 Follow up: Response: No adverse reaction rb1 Outcome: 17:09 Discharge ordered by . kb 17:46 Patient left the ED. rb1 17:46 Discharged to home ambulatory. rb1 17:46 Condition: stable 17:46 Discharge instructions given to patient, Instructed on discharge instructions, follow up and referral plans. medication usage, Demonstrated understanding of instructions, follow-up care, medications, Prescriptions given X 2. Addendum: 01/05/2019 07:46 Addendum: Culture Results: Positive urine culture. No further action required. Bacteria i w sensitive to prescribed antibiotic. Signatures: Lj Friedman jb1 Isa Shields, NURSE GENERAL DUTY-C NURSE GENERAL DUTY-Ckb Emma Villeda, RN RN aj1 Marya Lopez Irene, RN RN iw Lis Russ, SHERRI RN aa5 Keisha Ruiz, RN RN rb1 Maurizio Washburn RN RN ae4
--- NOTE | 2019-01-02 17:10 | EDPHYS ---
Physician Documentation [facility] Name: David Lira Age: 33 yrs Sex: Female : 1985 Arrival Date: 01/02/2019 Time: 14:10 Bed 13 Private MD: ED Physician Jorge Alberto Nayak HPI: 01/02 15:27 This 33 yrs old Female presents to ER via Ambulatory with complaints of kb Weakness, Vomiting. 15:27 The patient presents with dizziness, generalized weakness. Onset: The symptoms/episode kb began/occurred 2 week(s) ago, and became worse. Context: occurred at home. Modifying factors: The symptoms are alleviated by nothing, the symptoms are aggravated by nothing. Associated signs and symptoms: Pertinent positives: abdominal pain, vomiting. Severity of symptoms: At their worst the symptoms were moderate in the emergency department the symptoms are unchanged. Patient's baseline: Neuro: alert and fully oriented, Motor: no deficits, Ambulation: walks without assistance, Speech: normal. The patient has not experienced similar symptoms in the past. The patient has not recently seen a physician. Pt reports weakness, dizziness upon exertion and inability to tolerate solid food for 2 weeks. Symptoms worse over the past week. 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 - Social history:: Smoking status: Patient uses tobacco products, smokes one-half pack cigarettes per day. - Ebola Screening: : Patient denies travel to an Ebola-affected area in the 21 days before illness onset. ROS: 15:27 Constitutional: Negative for fever, chills, and weight loss, ENT: Negative for injury, kb pain, and discharge, Neck: Negative for injury, pain, and swelling, Cardiovascular: Negative for chest pain, palpitations, and edema, Respiratory: Negative for shortness of breath, cough, wheezing, and pleuritic chest pain, Back: Negative for injury and pain, : Negative for injury, bleeding, discharge, and swelling, MS/Extremity: Negative for injury and deformity, Skin: Negative for injury, rash, and discoloration. 15:27 Abdomen/GI: Positive for nausea and vomiting. 15:27 Neuro: Positive for dizziness, weakness. Exam: 15:26 Head/Face: Normocephalic, atraumatic. ENT: Nares patent. No nasal discharge, no kb septal abnormalities noted. Tympanic membranes are normal and external auditory canals are clear. Oropharynx with no redness, swelling, or masses, exudates, or evidence of obstruction, uvula midline. Mucous membranes moist. Neck: Trachea midline, no thyromegaly or masses palpated, and no cervical lymphadenopathy. Supple, full range of motion without nuchal rigidity, or vertebral point tenderness. No Meningismus. Chest/axilla: Normal chest wall appearance and motion. Nontender with no deformity. No lesions are appreciated. Cardiovascular: Regular rate and rhythm with a normal S1 and S2. No gallops, murmurs, or rubs. Normal PMI, no JVD. No pulse deficits. Respiratory: Lungs have equal breath sounds bilaterally, clear to auscultation and percussion. No rales, rhonchi or wheezes noted. No increased work of breathing, no retractions or nasal flaring. Skin: Warm, dry with normal turgor. Normal color with no rashes, no lesions, and no evidence of cellulitis. MS/ Extremity: Pulses equal, no cyanosis. Neurovascular intact. Full, normal range of motion. Neuro: Awake and alert, GCS 15, oriented to person, place, time, and situation. Cranial nerves II-XII grossly intact. Motor strength 5/5 in all extremities. Sensory grossly intact. Cerebellar exam normal. Normal gait. 15:26 Constitutional: The patient appears alert, awake, pale. 15:26 Abdomen/GI: Inspection: abdomen appears normal, Bowel sounds: normal, in all quadrants, Palpation: soft, in all quadrants, mild abdominal tenderness, in the right upper quadrant and left upper quadrant. Vital Signs: 14:15 BP 120 / 69; Pulse 114; Resp 20; Temp 98.1; Pulse Ox 100% on R/A; Weight 53.52 kg (R); aj1 Height 5 ft. 3 in. (160.02 cm) (R); 15:10 BP 123 / 70; Pulse 89; Resp 16; Pulse Ox 100% on R/A; rb1 16:09 BP 121 / 68; Pulse 91; Resp 17; Pulse Ox 99% on R/A; rb1 17:09 BP 122 / 71; Pulse 85; Resp 16; Pulse Ox 100% on R/A; rb1 14:15 Body Mass Index 20.90 (53.52 kg, 160.02 cm) aj1 MDM: 14:50 Patient medically screened. kb 15:26 Data reviewed: vital signs, nurses notes. Data interpreted: Pulse oximetry: on room air kb is 100 %. Interpretation: normal. 17:09 Counseling: I had a detailed discussion with the patient and/or guardian regarding: the kb historical points, exam findings, and any diagnostic results supporting the discharge/admit diagnosis, lab results, the need for outpatient follow up, a family practitioner, the need to transfer to another facility. 17:10 ED course: Pt reports history of anemia.. kb 01/02 15:16 Order name: CBC with Diff; Complete Time: 15:49 kb 01/02 15:16 Order name: Basic Metabolic Panel; Complete Time: 16:07 kb 01/02 15:50 Order name: Urine Dipstick--Ancillary (enter results); Complete Time: 16:07 em1 01/02 15:50 Order name: Test, Serum; Complete Time: 17:03 em1 01/02 16:08 Order name: Urine Microscopic Only 01/02 17:44 Order name: Urine Culture [facility] 01/02 15:16 Order name: IV Start; Complete Time: 15:38 kb 01/02 15:16 Order name: Urine Dipstick-Ancillary (obtain specimen); Complete Time: 15:38 kb Administered Medications: 15:45 Drug: NS 0.9% 1000 ml Route: IV; Rate: 1000 ml; Site: right antecubital; ae4 16:23 Follow up: IV Status: Completed infusion rb1 16:25 Drug: NS 0.9% 1000 ml Route: IV; Rate: 1000 ml; Site: right antecubital; ae4 16:59 Drug: Rocephin 1 grams Route: IV; Rate: 1 calculated rate; Site: right antecubital; aa5 17:07 Follow up: Response: No adverse reaction aa5 17:07 Drug: Zofran 4 mg Route: IVP; Site: right antecubital; aa5 17:30 Follow up: Response: No adverse reaction; Nausea is decreased ae4 17:28 Drug: GI Cocktail without - (Maalox Suspension 30 ml, Lidocaine Liquid 2 % 15 rb1 ml) Route: PO; 17:43 Follow up: Response: No adverse reaction rb1 Disposition: 01/02/19 17:09 Discharged to Home. Impression: Anemia, unspecified, Nausea and vomiting, Dehydration, Urinary tract infection, site not specified. - Condition is Stable. - Discharge Instructions: Nausea and Vomiting, Adult, [id number], Urinary Tract Infection, Adult, [id number], Dehydration, Adult, [id number]. - Prescriptions for Macrobid 100 mg Oral Capsule - take 1 capsule by ORAL route every 12 hours for 10 days; 20 capsule. Zofran 4 mg Oral Tablet - take 1 tablet by ORAL route every 6 hours As needed; 20 tablet. - Medication Reconciliation Form, Thank You Letter, Antibiotic Education, Prescription Opioid Use form. - Follow up: Emergency Department; When: As needed; Reason: Worsening of condition. Follow up: Private Physician; When: 2 - 3 days; Reason: Recheck today's complaints, Continuance of care, Re-evaluation by your physician. Addendum: 01/05/2019 07:01 Co-signature as Attending Physician, Jorge Alberto Nayak MD I agree with the assessment and c hall plan of care. Signatures: Dispatcher [employer] EDVT Isa Shields, FARM CREW MEMBER-C FARM CREW MEMBER-Ckb Emma Villeda RN RN aj1 Jorge Alberto Nayak MD MD cha Calderon, Audri RN RN aa5 Keisha Ruiz, RN RN rb1 Maurizio Washburn RN RN ae4 Corrections: (The following items were deleted from the chart) 01/02 17:46 17:09 01/02/2019 17:09 Discharged to Home. Impression: Anemia, unspecified; Nausea and rb1 vomiting; Dehydration; Urinary tract infection, site not specified. Condition is Stable. Forms are Medication Reconciliation Form, Thank You Letter, Antibiotic Education, Prescription Opioid Use. Follow up: Emergency Department; When: As needed; Reason: Worsening of condition. Follow up: Private Physician; When: 2 - 3 days; Reason: Recheck today's complaints, Continuance of care, Re-evaluation by your physician. kb
[2019-01-02] MEDS ORDERED: LIDOCAINE VISCOUS 2% SOLN 15 ML UDC ONE (17:27)
[2019-01-02] MEDS ORDERED: MAGNE/ALUM HYDROXD 30 ML UCUP ONE (17:27)
[2019-01-02 17:42] LABS: Urine Bacteria >50 /HPF (<20); Urine RBC <5 /HPF (NONE SEEN)
[2019-01-02 17:43] LABS: Urine Culture Reflex Order REFLEXED
[2019-01-02 18:38] VITALS: BP 120/69; TEMP 98.1; O2SAT 100
== END 2019-01-02 17:46 | disposition home or self-care (01) ==
LOC: ER 14:07
DX: E86.0 Dehydration (principal); D64.9 Anemia, unspecified; N39.0 Urinary tract infection, site not specified; F17.210 Nicotine dependence, cigarettes, uncomplicated
CPT/HCPCS: 96361; 87088; 85025; 87086; 80048; 36415; 84703; 87077; 87186; 96375; 96374; 99284; J0696; J7030 ×2; J2405; 81003; 81015

== ENCOUNTER 2020-10-11 01:31 | Emergency (ER) | payer OTHER ==
--- OUTSIDE RECORDS SUMMARY | 2020-10-11 01:35 | XMS REPORT | Continuity of Care Document ---
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 JblztkuGYEVPGBNOYFY5721-11-42 03:13:0014[facility] RLQCZDQCXAMB3421-11-35 03:13:009.0[facility] WeeweqsKNFHDOZDSIVN6939-50-61 03:13:84843Emufjpra BgsjbxfGQTZBECKPOIJ3161-62-30 03:13:0024[facility] PKGGUQGRGD6496-71-65 03:13:0041.9[facility] DmitkvyDCKFMHBFHN5330-55-12 03:13:00 1.4[facility] FtmqmpoIRANOHIDKV5228-21-21 03:13:0050.5[facility] 2017-08-11 03:13:005.6[facility] DinzdsjDTYXSVFGEU9387-23-40 03:13:000.1[facility] LhrgdvbMIVUAOGUOE7706-00-39 03:13:000.4[facility] VcgjaywYWBTMMVQAG9734-89-80 03:13:000.6[facility] WhiqjnsNVNSZPARCX3004-51-04 03:13:003.2[facility] VRMRPGTRIG2689-69-16 03:13:003.9[facility] NzigpivFIXCANQZMZ6766-36-94 03:13:00 Test Item Value Reference Range Interpretation Comments PTT (test code = PTT) 31.0 s 22.9-35.[address] CenterNaxqiodPXGPXBJJSP8208-14-07 03:13:00 Test Item Value Reference Range Interpretation Comments PT (test code = PT) 13.5 s 12.0-14.7 [facility] XmgjlkuRQXWKWXUTM0774-80-77 03:13:00 Test Item Value Reference Range Interpretation Comments INR (test code = INR) 1.03 1 0.85-1.17 [facility] JtkzalmNKEIABFPRI2726-36-34 03:13:007.7[facility] 2017-08-11 03:13:0014.8[facility] DfklquxMTRIDDDZKM4026-18-41 03:13:005.26[facility] YdodqgfBTNTNKWRQD1331-20-31 03:13:00 Test Item Value Reference Range Interpretation Comments MCH (test code = MCH) 28.2 pg 27.0-31.0 [facility] OzmrrecHUGOWCWMUN0959-86-57 03:13:0084.8[facility] 2017-08-11 03:13:0044.6[facility] OtesuvkACOABTEIBV9798-63-32 03:13:0033.3[facility] UmhnhjgPHJYEQDLDN5496-51-86 03:13:16533Dsrcxcch WoifgnbWODDGAXMAF8839-59-39 03:13:0015.3[facility] WkqcfiiQJGXZPQBPD9521-87-78 03:13:007.0[facility]annCHE[facility] DZVVB8462-96-67 04:30:000.7[facility] EOBTK3229-47-33 23:45:00 Positive *ABN*(06/05/17 6:45 PM)[facility] EDGYX5931-04-58 23:45:00Negative (06/05/17 6:45 PM)[facility] PVBNW7355-85-04 23:45:00Negative (06/05/17 6:45 PM)[facility] EARHN6601-33-39 23:45:000.2[facility] YGHSO8872-87-30 23:45:00Negative *NA*(06/05/17 6:45 PM)[facility] ULEFD9339-70-36 23:45:00Negative (06/05/17 6:45 PM)[facility] HHGJF2770-59-34 23:45:00Trace *ABN*(06/05/17 6:45 PM)[facility] JTVKW2594-49-98 23:45:00 <=1.005 *NA*(06/05/17 6:45 PM)[facility] WNSYK9833-35-40 23:45:00Clear (06/05/17 6:45 PM)[facility] SPFZQ2607-69-31 23:45:00Yellow *NA*(06/05/17 6:45 PM)[facility] FPXGL5447-68-77 23:45:00Negative (06/05/17 6:45 PM)[facility] LRERM1423-57-91 23:45:00 Test Item Value Reference Range Interpretation Comments UA pH (test code = UA pH) 6.0 1 5.0-8.0 [facility] MMUZJ4642-67-93 23:45:00None Seen (06/05/17 6:45 PM) [facility] NkmemcpNUAFZJKNUD3668-02-17 22:51:00Negative *NA*(06/05/17 5:51 PM) [facility] EVDTWMC8103-89-14 22:42:00Negative (06/05/17 5:42 PM) [facility] HermannCHEM CZWSV0808-22-26 22:42:002.7[facility]annCHEM PANEL 2017-06-05 22:42:0072[facility]annCHE[facility] FQTCL8350-87-57 22:42:0022[facility]annCHE[facility] USZPH1650-60-06 22:42:008.6[facility]annCHE[facility] UFQRF6065-23-32 22:42:0017.2[facility]annCHE[facility] LYKHD5662-67-55 22:42:001.04[facility] CHEM HRLLD9134-45-52 22:42:71753Ohblpbgr HermannCHEM ATNCT8314-44-04 22:42:36267 [facility] IKKOI1688-56-34 22:42:003.2[facility]annCHEM PANEL 2017-06-05 22:42:0013[facility]annCHE[facility] XLYKO3397-44-93 22:42:64276Xnahjjxe XetuyudVNSWDKOVESHSF2310-68-99 22:42:00Negative *NA*(06/05/17 5:42 PM)[facility] CenterUtsfewjAXDFMTTTKL4258-52-96 22:42:00 Test Item Value Reference Range Interpretation Comments Max Amplitude Rapid (test code = Max 58 mm 52-71 Amplitude Rapid) [facility] HospitalFdzwongVLGAWSNMKX6991-65-78 22:42:006.8[facility]annHEMATOLOG[facility] 2017-06-05 22:42:002.5[facility] SogckzbCTFOLYPRQL1007-79-77 22:42:00 Test Item Value Reference Range Interpretation Comments R-time Rapid (test code = R-time 0.7 min 0.4-0.7 Rapid) [facility] CenterJtajekrGPKAPHCZRI5447-91-83 22:42:00 Test Item Value Reference Range Interpretation Comments Angle Rapid (test code = Angle 72 degrees 64-80 Rapid) [facility] HospitalIvvldsxWRNRUONMON7633-38-22 22:42:00 Test Item Value Reference Range Interpretation Comments K-time Rapid (test code = K-time 1.9 min 0.6-2.3 Rapid) [facility]icsTuxgasvPODUKIFZAC0266-59-15 22:42:00 Test Item Value Reference Range Interpretation Comments Split Point Rapid (test code = Split 0.6 min Point Rapid) [facility] GbjpmxzGJIITWSKFO7204-70-39 22:42:00 Test Item Value Reference Range Interpretation Comments ACT (TEG) Rapid (test code = ACT (TEG) 113 s 86-118 Rapid) [facility] ZjzzteaSTPNHAVSAQ9088-12-15 22:42:0015.8[facility]annHEMATOLOGY 2017-06-05 22:42:0033.2[facility] KfsoxuzMXAYCDYOSY3135-37-57 22:42:006.9[facility] WpplezuLZJRAGLUKE0263-72-63 22:42:92839Goucqsbr MailvgwSLLOSFJULC4589-48-05 22:42:00 Test Item Value Reference Range Interpretation Comments MCH (test code = MCH) 29.1 pg 27.0-31.0 [facility] AwfjadwHRCXVJCFSK4432-56-77 22:42:0087.7[facility]annHEMATOLOGY 2017-06-05 22:42:004.64[facility] UvceujyKQDXINHYZP9228-10-63 22:42:0040.7[facility] UzkbxlmQGEXTJJAPQ3066-04-91 22:42:0013.2[facility] ThrmoevEXWDRSTXZA3466-30-35 22:42:0013.5[facility] IxmsqbbALVAWOCIYY7881-64-48 22:42:0082.6[facility] GBIMHSUULY5678-68-97 22:42:0011.8[facility] TsrewmsDDAZOURUTS2314-09-69 22:42:00 1.6[facility] QzerqytDWRFMOXBAA6098-74-54 22:42:000.2[facility]annHEMATOLOGY 2017-06-05 22:42:0010.9[facility] AphohhdZFWOQESNMM5947-79-05 22:42:000.4[facility] FcopdfvDKYODWUIWP6827-64-18 22:42:005.0[facility] OhcgzhmRKALMRGVOA5288-99-10 22:42:000.1[facility] EplfqxoOEYCFVBSAW9611-22-90 22:42:000.7[facility] ZNVTJ5095-04-66 00:01:00None Seen (12/02/14 7:01 PM)[facility] QDSLH1567-15-51 00:01:00Negative (12/02/14 7:01 PM)[facility] SJQYA3616-62-73 00:01:00Negative *NA*(12/02/14 7:01 PM)[facility] INQUL9430-65-07 00:01:00 Test Item Value Reference Range Interpretation Comments UA pH (test code = UA pH) 6.0 1 5.0-8.0 [facility] LYFKB0418-81-43 00:01:00Clear (12/02/14 7:01 PM) [facility] VXTHS0871-63-18 00:01:00Yellow *NA*(12/02/14 7:01 PM) [facility] DAVII9857-78-67 00:01:00 Test Item Value Reference Range Interpretation Comments UA Spec Grav (test code = UA Spec 1.020 1 Grav) [facility] RYQBW0882-17-95 00:01:00Negative (12/02/14 7:01 PM) [facility] IWPYU0908-62-36 00:01:00Negative (12/02/14 7:01 PM) [facility] SLGRQ6649-27-13 00:01:000.2[facility] IAYBN4610-43-74 00:01:00Not Indicated *NA*(12/02/14 7:01 PM)[facility] KRBM8366-10-01 00:01:00Positive *ABN*(12/02/14 7:01 PM)[facility] AND KEVGN1790-29-01 20:37:28Negative (12/28/13 2:37 PM)[facility] AND BUSTU0598-29-04 20:37:28Negative *NA*(12/28/13 2:37 PM)[facility] ZJKCT1958-20-53 20:37:28Negative (12/28/13 2:37 PM)[facility] BHZGW1624-59-31 20:37:28Negative (12/28/13 2:37 PM)[facility] JVYKS1741-90-69 20:37:280.2[facility] STOOL 2013-12-28 20:37:28 Test Item Value Reference Range Interpretation Comments UA pH (test code = UA pH) 6.0 1 5.0-8.0 [facility] XSICI8625-27-72 20:37:28 Test Item Value Reference Range Interpretation Comments UA Spec Grav (test code = UA Spec 1.015 1 Grav) [facility] TVBCM0618-16-11 20:37:28Yellow *NA*(12/28/13 2:37 PM) [facility] IGMPN6256-11-85 20:37:28Clear (12/28/13 2:37 PM) [facility] UFEKJ6153-10-95 20:37:28None Seen (12/28/13 2:37 PM) [facility] FJAPUXB8397-53-06 17:40:00Positive 1(12/28/13 11:40 AM)[facility]annCHE[facility] ODVGD2739-66-56 17:39:001.5[facility]annCHEM PANEL 2013-12-28 17:39:0078[facility]annCHEM IOMIO9875-06-09 17:39:0027[facility]annCHEM GDOGE2027-47-67 17:39:007.7[facility]annCHEM DTGJG5578-59-24 17:39:08931Npnkiaih HermannCHEM EQYDD8667-69-43 17:39:001.0[facility]annCHEM ALYXS5500-32-61 17:39:57492Ejovjsfj HermannCHEM HJSZT9279-40-08 17:39:003.4 [facility]annCHE[facility] TPTSJ2507-38-86 17:39:0012[facility]annCHEM PANEL 2013-12-28 17:39:0076[facility]annCHEM BJDXL7505-04-40 17:39:0013.4[facility] AqjxxtyPCZRPXXWQU1801-83-71 17:39:00 Test Item Value Reference Range Interpretation Comments Max Amp (test code = Max Amp) 47 mm 52-71 [facility] VkecmqfORLAQALBGQ4019-72-74 17:39:004.4[facility]annHEMATOLOGY 2013-12-28 17:39:001.4[facility] RrfwgwdJYTXEJHOSC6691-30-48 17:39:00 Test Item Value Reference Range Interpretation Comments Angle (test code = Angle) 52 degrees 64-80 [facility] MqnnrftSAYXHQQLAT1103-87-16 17:39:00 Test Item Value Reference Range Interpretation Comments K-time (test code = K-time) 3.5 min 0.6-2.3 [facility] PutakczWIRHCVKEJU4195-54-81 17:39:00 Test Item Value Reference Range Interpretation Comments R-time (test code = R-time) 1.0 min 0.4-0.7 [facility] QcrgfpuCLOUUISOXR4493-45-75 17:39:00 Test Item Value Reference Range Interpretation Comments Split Point (test code = Split Point) 0.7 min [facility] FqwclksKOCJNQNZXX5883-21-66 17:39:00 Test Item Value Reference Range Interpretation Comments ACT (TEG) (test code = ACT (TEG)) 144 s 86-118 [facility] IgsmsjyFVEQILJXKQ6326-13-23 17:39:0045.2[facility]annHEMATOLOGY 2013-12-28 17:39:004.83[facility] AjnbalfLMDCPAXJTS6332-31-80 17:39:0015.3[facility] WupdkqcCRDXHCHQYQ8996-28-91 17:39:0093.7[facility] MyasdffAJZKXFAGDS8513-43-28 17:39:0010.2[facility] KptzvaqSCSYLUOQIB0789-27-03 17:39:007.4[facility] EXOFRGTDSK6810-06-01 17:39:95549Eykukthm TdyweqfZPKDYTJUPE1219-57-64 17:39:00 13.1[facility] ZwucliyPOJBDXZVAU5920-49-34 17:39:0033.7[facility]annHEMATOLOGY 2013-12-28 17:39:00 Test Item Value Reference Range Interpretation Comments MCH (test code = MCH) 31.6 pg 27.0-31.0 [facility] WuajtfhWEERDOSXUY7302-70-11 17:39:007.7[facility]annHEMATOLOGY 2013-12-28 17:39:000.0[facility] DwgeqwyJEVOLMCVBS1341-51-52 17:39:001.3[facility] RvdhdnuIFPQUOENSZ4073-24-74 17:39:000.1[facility] AgrhmcgDHKERAKPVN1885-75-33 17:39:000.6[facility] MsjkubaCSMSEVLWIC9130-69-68 17:39:001.8[facility] OMSGMZRXUZ6860-30-79 17:39:000.0[facility] QvnzeqkYAENEWSFCC1585-35-87 17:39:00 75.1[facility] QrzsgtyNZHUIQQDDE9338-36-17 17:39:00Normal (12/28/13 11:39 AM) [facility] QlmcfpoEYROFVIXNW0147-77-04 17:39:006.1[facility]annHEMATOLOGY 2013-12-28 17:39:0017.5[facility] GrlcprnHPEJLGWJAM1574-17-84 17:39:00Normal (12/28/13 11:39 AM)[facility] AtioujvIOZNHOADGA7439-08-93 17:39:000.097[facility] YkebfnaUYHZWHORDT0393-09-83 17:39:0097[facility]annDRUG QWOJWN8003-33-84 17:36:00Negative *NA*(12/28/13 11:36 AM)[facility]annDR[facility] HIDETE5759-09-81 17:36:00Positive *ABN*(12/28/13 11:36 AM)[facility]annDR[facility] GPHOLV9430-95-94 17:36:00Negative *NA*(12/28/13 11:36 AM)[facility]annDR[facility] CGGZFC6439-87-68 17:36:00Positive *ABN*(12/28/13 11:36 AM)[facility]annDR[facility] LVMIES6401-70-15 17:36:00Negative *NA*(12/28/13 11:36 AM)[facility]annDR[facility] HTTQPJ7148-08-31 17:36:00See Note 4(12/28/13 11:36 AM)[facility]annDR[facility] WWOEAH1867-44-41 17:36:00Negative *NA*(12/28/13 11:36 AM)[facility]annDR[facility] LNFDUW1877-82-34 17:36:00Negative *NA*(12/28/13 11:36 AM)[facility]
[2020-10-11 06:22] LABS: Absolute Lymphocytes (CBC) 1.6 K/uL (0.7-4.9); Basophils % 0.5 % (0-1.3); Hematocrit 34.5 % (36.0-45.0); Lymphocytes % 17.2 % (15.3-44.8); MPV 7.7 fL (7.6-11.3); Protime INR 1.17; RBC Red Blood Cell Count 4.44 M/uL (3.86-4.86)
[2020-10-11 07:07] LABS: ALT/SGPT 25 U/L (12-78); AST/SGOT 18 U/L (15-37); Albumin 3.5 g/dL (3.4-5.0); Alkaline Phosphatase 94 U/L (45-117); BUN Blood Urea Nitrogen 14 mg/dL (7-18); Bicarbonate 27 mmol/L (21-32); Bilirubin Direct 0.2 mg/dL (0-0.2); Bilirubin Total 0.7 mg/dL (0.2-1.0); Glucose Level 89 mg/dL (74-106); Magnesium 1.9 mg/dL (1.8-2.4); NT PRO-BNP 35 pg/mL (<125); Potassium 3.5 mmol/L (3.5-5.1); Protein, Total 7.5 g/dL (6.4-8.2); Sodium Level 138 mmol/L (136-145); Troponin (Emerg Dept Use Only) < 0.02 ng/mL (0.0-0.045)
--- NOTE | 2020-10-11 07:16 | EDPHYS ---
Physician Documentation [facility] Name: David Lira Age: 35 yrs Sex: Female : 1985 Arrival Date: 10/11/2020 Time: 01:33 Bed DX1 Private MD: ED Physician Andrzej Morales HPI: 10/11 05:10 This 35 yrs old Female presents to ER via Ambulatory with complaints of Leg mh7 Swelling, Feet Swelling, Ankle Swelling. 05:10 The patient presents with swelling. mh7 05:10 The complaints affect the left leg and right leg. Context: The problem was sustained at [facility] an unknown site, resulted from an unknown cause, the patient can fully bear weight, the patient is able to ambulate, without difficulty, Problem is a result from a previous injury: No. Onset: The symptoms/episode began/occurred 2 month(s) ago. Modifying factors: The symptoms are alleviated by nothing. the symptoms are aggravated by weight bearing. Associated signs and symptoms: Pertinent negatives calf tenderness, fever, nausea, numbness, rash, tingling, vomiting, warmth, weakness. Treatment prior to arrival includes: no previous treatment. Severity of symptoms: At their worst the symptoms were moderate, 14 day(s) ago, in the emergency department the symptoms are unchanged. 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 - Social history:: Smoking status: Patient reports the use of cigarette tobacco products, smokes one-half pack cigarettes per day, Patient uses alcohol, occasionally. ROS: 05:10 Constitutional: Negative for fever, chills, and weight loss, Eyes: Negative for injury, mh7 pain, redness, and discharge, ENT: Negative for injury, pain, and discharge, Neck: Negative for injury, pain, and swelling, Cardiovascular: Negative for chest pain, palpitations, and edema, Respiratory: Negative for shortness of breath, cough, wheezing, and pleuritic chest pain, Abdomen/GI: Negative for abdominal pain, nausea, vomiting, diarrhea, and constipation, Back: Negative for injury and pain, : Negative for injury, bleeding, discharge, and swelling, Skin: Negative for injury, rash, and discoloration, Neuro: Negative for headache, weakness, numbness, tingling, and seizure, Psych: Negative for depression, anxiety, suicide ideation, homicidal ideation, and hallucinations, Allergy/Immunology: Negative for hives, rash, and allergies, Endocrine: Negative for neck swelling, polydipsia, polyuria, polyphagia, and marked weight changes, Hematologic/Lymphatic: Negative for swollen nodes, abnormal bleeding, and unusual bruising. Exam: 05:10 Constitutional: This is a well developed, well nourished patient who is awake, alert, mh7 and in no acute distress. Head/Face: Normocephalic, atraumatic. Eyes: Pupils equal round and reactive to light, extra-ocular motions intact. Lids and lashes normal. Conjunctiva and sclera are non-icteric and not injected. Cornea within normal limits. Periorbital areas with no swelling, redness, or edema. Neck: Trachea midline, no thyromegaly or masses palpated, and no cervical lymphadenopathy. Supple, full range of motion without nuchal rigidity, or vertebral point tenderness. No Meningismus. Chest/axilla: Normal chest wall appearance and motion. Nontender with no deformity. No lesions are appreciated. Cardiovascular: Regular rate and rhythm with a normal S1 and S2. No gallops, murmurs, or rubs. Normal PMI, no JVD. No pulse deficits. Respiratory: Lungs have equal breath sounds bilaterally, clear to auscultation and percussion. No rales, rhonchi or wheezes noted. No increased work of breathing, no retractions or nasal flaring. Abdomen/GI: Soft, non-tender, with normal bowel sounds. No distension or tympany. No guarding or rebound. No evidence of tenderness throughout. Back: No spinal tenderness. No costovertebral tenderness. Full range of motion. Skin: Warm, dry with normal turgor. Normal color with no rashes, no lesions, and no evidence of cellulitis. 05:10 Neuro: Awake and alert, GCS 15, oriented to person, place, time, and situation. Cranial nerves II-XII grossly intact. Motor strength 5/5 in all extremities. Sensory grossly intact. Cerebellar exam normal. Normal gait. Psych: Awake, alert, with orientation to person, place and time. Behavior, mood, and affect are within normal limits. 05:10 Musculoskeletal/extremity: Extremities: noted in the left leg and right leg: swelling, Pedal edema, ROM: intact in all extremities, Circulation is intact in all extremities. Sensation intact. Compartment Syndrome exam of affected extremity: is normal. no pain, no numbness, no tingling, no sensation deficit, no palor, no weak pulses, Joints: All joints appear normal with full range of motion. Weight bearing: able to fully bear weight, without difficulty, Tendon exam: specific tendon testing normal through active and passive range of motion DVT Exam: no pain, no tenderness, negative Homans' sign noted on exam, no appreciated bluish discoloration, no erythema, no increased warmth, Calves: are non-tender, have equal circumference. Vital Signs: 02:37 BP 127 / 53; Pulse 97; Resp 16 S; Temp 98.4; Pulse Ox 99% on R/A; Weight 87.09 kg (R); bb Height 5 ft. 4 in. (162.56 cm) (R); Pain 10/10; 06:41 BP 109 / 64; Pulse 75; Resp 20; Pulse Ox 96% on R/A; oe 07:25 BP 102 / 50; Pulse 81; Resp 16 S; Temp 96.8(TE); Pulse Ox 98% on R/A; bb 02:37 Body Mass Index 32.96 (87.09 kg, 162.56 cm) MDM: 07:13 Differential diagnosis: Pedal edema, CHF, cellulitis. Data reviewed: vital signs, [facility] nurses notes, lab test result(s), cardiac enzymes, CBC, electrolytes, EKG, radiologic studies, plain films. Data interpreted: Pulse oximetry: on room air is 96 %. Interpretation: normal. Counseling: I had a detailed discussion with the patient and/or guardian regarding: the historical points, exam findings, and any diagnostic results supporting the discharge/admit diagnosis, lab results, radiology results, the need for outpatient follow up, to return to the emergency department if symptoms worsen or persist or if there are any questions or concerns that arise at home. Response to treatment: the patient's symptoms have markedly improved after treatment. 07:16 Patient medically screened. [facility] 10/11 05:24 Order name: Basic Metabolic Panel [facility] 10/11 05:24 Order name: CBC with Diff [facility] 10/11 05:24 Order name: LFT's [facility] 10/11 05:24 Order name: Magnesium [facility] 10/11 05:24 Order name: NT PRO-BNP; Complete Time: 07:11 [facility] 10/11 05:24 Order name: PT-INR; Complete Time: 06:59 [facility] 10/11 05:24 Order name: Troponin (emerg Dept Use Only); Complete Time: 07:11 [facility] 10/11 05:24 Order name: XRAY Chest (1 view) [facility] 10/11 05:24 Order name: EKG; Complete Time: 05:24 [facility] 10/11 05:24 Order name: Basic Metabolic Panel; Complete Time: 07:11 EDMS 10/11 05:24 Order name: CBC with Automated Diff; Complete Time: 06:59 EDMS 10/11 05:24 Order name: Liver (Hepatic) Function; Complete Time: 07:11 EDMS 10/11 05:24 Order name: Magnesium; Complete Time: 07:11 EDMS 10/11 05:24 Order name: Cardiac monitoring [facility] 10/11 05:24 Order name: EKG - Nurse/Tech; Complete Time: 06:34 [facility] 10/11 05:24 Order name: IV Saline Lock; Complete Time: 06:34 [facility] 10/11 05:24 Order name: Labs collected and sent; Complete Time: 06:34 [facility] 10/11 05:24 Order name: O2 Per Protocol [facility] 10/11 05:24 Order name: O2 Sat Monitoring [facility] Administered Medications: No medications were administered Disposition Summary: 10/11/20 07:16 Discharge Ordered Location: Home [facility] Problem: chronic [facility] Symptoms: have improved [facility] Condition: Stable [facility] Diagnosis - Pedal Edema, Chronic [facility] Followup: [facility] - With: Private Physician - When: 1 - 2 days - Reason: Worsening of condition, Recheck today's complaints, Continuance of care, Re-evaluation by your physician Discharge Instructions: - Discharge Summary Sheet [facility] - Peripheral Edema [facility] Forms: - Medication Reconciliation Form 7 - Thank You Letter 7 - Antibiotic Education [facility] - Work release form em1 - Prescription Opioid Use [facility] Signatures: Dispatcher [employer] Bryanna Hernandez RN RN bb Holmes, Maurice, MD MD mh7 Corrections: (The following items were deleted from the chart) 07:24 05:24 Urine Dipstick-Ancillary ordered. Antonio villa 07:24 05:24 Urine Test ordered. Antonio villa
--- NOTE | 2020-10-11 07:16 | ER ---
Nurse's Notes [facility] Name: David Lira Age: 35 yrs Sex: Female : 1985 Arrival Date: 10/11/2020 Time: 01:33 Bed DX1 Private MD: Diagnosis: Pedal Edema, Chronic Presentation: 10/11 02:37 Chief complaint: Patient states: she is having pain and swelling in bilateral lower bb legs x 6 months she was here earlier but came back because of the wait. Coronavirus screen: At this time, the client does not indicate any symptoms associated with coronavirus-19. Ebola Screen: No symptoms or risks identified at this time. Initial Sepsis Screen: Does the patient meet any 2 criteria? No. Patient's initial sepsis screen is negative. Does the patient have a suspected source of infection? No. Patient's initial sepsis screen is negative. Risk Assessment: Do you want to hurt yourself or someone else? Patient reports no desire to harm self or others. Onset of symptoms is unknown. 02:37 Method Of Arrival: Ambulatory bb 02:37 Acuity: ROSMERY 3 bb Triage Assessment: 02:42 General: Appears in no apparent distress. Behavior is calm, cooperative. Pain: bb Complains of pain in right leg and left leg Pain currently is 10 out of 10 on a pain scale. Neuro: Level of Consciousness is awake, alert, obeys commands, Oriented to person, place, time, situation. Cardiovascular: Capillary refill < 3 seconds Patient's skin is warm and dry. Respiratory: Airway is patent Respiratory effort is even, unlabored, Respiratory pattern is regular. GI: No signs and/or symptoms were reported involving the gastrointestinal system. Derm: Skin is pink, warm \T\ dry. Musculoskeletal: Circulation, motion, and sensation intact. Reports pain in right leg and left leg. 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 - Social history:: Smoking status: Patient reports the use of cigarette tobacco products, smokes one-half pack cigarettes per day, Patient uses alcohol, occasionally. Screenin:20 Abuse screen: Denies threats or abuse. Nutritional screening: No deficits noted. bb Tuberculosis screening: No symptoms or risk factors identified. Fall Risk None identified. Assessment: 05:20 Reassessment: No changes from previously documented assessment. Patient is alert, bb oriented x 3, equal unlabored respirations, skin warm/dry/pink. see triage assessment. 07:24 Reassessment: pt appears to be sleeping, eyes closed, resp unlabored, arouses easily pt bb verbalized understanding of and agrees to plan of care discharge instructions given. Vital Signs: 02:37 BP 127 / 53; Pulse 97; Resp 16 S; Temp 98.4; Pulse Ox 99% on R/A; Weight 87.09 kg (R); bb Height 5 ft. 4 in. (162.56 cm) (R); Pain 10/10; 06:41 BP 109 / 64; Pulse 75; Resp 20; Pulse Ox 96% on R/A; oe 07:25 BP 102 / 50; Pulse 81; Resp 16 S; Temp 96.8(TE); Pulse Ox 98% on R/A; bb 02:37 Body Mass Index 32.96 (87.09 kg, 162.56 cm) bb ED Course: 01:33 Patient arrived in ED. bp1 02:42 Triage completed. bb 02:42 Arm band placed on Patient placed in waiting room, Patient notified of wait time. bb 05:01 Andrzej Morales MD is Attending Physician. [facility] 05:20 Patient has correct armband on for positive identification. bb 06:06 Missed attempt(s): 20 gauge Bleeding controlled, band aid applied, catheter tip intact. oe 06:10 Inserted saline lock: 20 gauge in left antecubital area, using aseptic technique. Blood oe collected. 06:22 XRAY Chest (1 view) In Process Unspecified. EDMS 07:26 No provider procedures requiring assistance completed. IV discontinued, intact, bb bleeding controlled, No redness/swelling at site. Pressure dressing applied. Administered Medications: No medications were administered Outcome: 07:16 Discharge ordered by . 7 07:26 Discharged to home ambulatory. bb 07:26 Condition: stable 07:26 Discharge instructions given to patient, Instructed on discharge instructions, follow up and referral plans. Demonstrated understanding of instructions, follow-up care. 07:26 Patient left the ED. daisy Signatures: Dispatcher [employer] Bryanna Hernandez RN RN bb Espinosa, Orlando oe Paniauga, Brittany bp1 Holmes, Maurice, MD MD [id number] Corrections: (The following items were deleted from the chart) 06:11 06:10 Missed attempt(s): 20 gauge Bleeding controlled, band aid applied, catheter tip oe intact. oe
[2020-10-11 07:36] VITALS: BP 102/50; TEMP 96.8; O2SAT 98
--- NOTE | 2020-10-11 09:01 | RAD REPORT ---
EXAM DESCRIPTION: RAD - Chest Single View - 10/11/2020 6:21 am CLINICAL HISTORY: SWELLING, shortness of breath COMPARISON: September 2014, September 2010 TECHNIQUE: AP portable chest image was obtained 10/11/2020 6:21 am . FINDINGS: No dense mass or consolidations seen. Lung markings in the medial right base minimally obs cure the right heart border. This is not definitive for a right middle lobe pneumonia. Lung markings in each base are slightly more prominent than prior imaging ; however, has been a significant time in terval between examinations and the lower lung volumes on today's study accentuate the lung pattern. A minimal interstitial edema or infiltrate cannot be excluded. No hilar mass or lymphadenopathy. Ther e is asymmetry of the soft tissues greater on the right. This could be from normal breast size asymme try. No surgical clips are seen that would suggest left breast surgery. Heart and vasculature are normal. No measurable pleural effusion and no pneumothorax. No acute bony abnormality seen. No acute aortic findings suspected. IMPRESSION: No acute cardiopulmonary process suspected. Prominence of the interstitial markings in each base suspected to be the affects of slightly shallow inspiration. Minimal interstitial edema or infiltrate cannot be excluded.
--- NOTE | 2020-10-11 15:37 | EKG ---
Test Date: 2020-10-11 Test Time: 06:32:37 Joiner: ALEXI MEASUREMENT RESULTS: Intervals: Rate: 80 ME: 152 QRSD: 82 QT: 392 QTc: 452 Delta: P: 69 ME: 152 QRS: 34 T: 42 INTERPRETIVE STATEMENTS: Normal sinus rhythm Normal ECG Compared to ECG 09/23/2014 12:31:41 Sinus bradycardia no longer present Sinus arrhythmia no longer present Electronically Signed On 10-11-20 15:36:51 CDT by Garcia Nation
== END 2020-10-11 07:26 | disposition home or self-care (01) ==
LOC: ER 01:31
DX: R60.9 Edema, unspecified (principal); F17.210 Nicotine dependence, cigarettes, uncomplicated; Z88.0 Allergy status to penicillin
CPT/HCPCS: 36415; 71045; 80048; 80076; 83735; 83880; 84484; 85025; 85610; 93005; 99283

== ENCOUNTER 2021-06-19 07:40 | Emergency (ER) | payer OTHER ==
--- OUTSIDE RECORDS SUMMARY | 2021-06-19 07:44 | XMS REPORT | Continuity of Care Document ---
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 HospitalWfrbqolJTCWKOTYWDSM5331-67-73 03:13:00 Test Item Value Reference Range Interpretation Comments Potassium Lvl (test code = Potassium 3.7 3.5-5.1 Lvl) [facility] HospitalNrjkchrIMGXGCYMKWEY9979-59-31 03:13:00 Test Item Value Reference Range Interpretation Comments BUN (test code = BUN) 14 7-22 [facility] HospitalNslitstFHMWQYHKCMWP6674-02-66 03:13:00 Test Item Value Reference Range Interpretation Comments Calcium Lvl (test code = Calcium Lvl) 9.0 8.5-10.5 [facility] HospitalQjkyxwgYXENQEVHJUOM7419-42-27 03:13:00 Test Item Value Reference Range Interpretation Comments Chloride Lvl (test code = Chloride Lvl) 104 95-109 [facility] HospitalMwbpgapFRRANBTDIWOL2884-57-35 03:13:00 Test Item Value Reference Range Interpretation Comments CO2 (test code = CO2) 24 24-32 [facility]KfaarelJYIYDBANUE5171-83-54 03:13:00 Test Item Value Reference Range Interpretation Comments Lymphocytes (test code = Lymphocytes) 41.9 20.0-40.0 [facility] CenterTpureihFTARNDNRXS1153-54-27 03:13:00 Test Item Value Reference Range Interpretation Comments Eosinophils (test code = 1.4 See_Comment [A utomated message] The Eosinophils) system which ge nerated this result tra nsmitted reference range : <=4.0. The reference r didier was not used to int erpret this result as normal/abnormal . [facility] CenterJlqezzlSQQNOIULTO8145-09-93 03:13:00 Test Item Value Reference Range Interpretation Comments Segs (test code = Segs) 50.5 45.0-75.0 [facility] CenterMkpcpgiRPDLARXZEP5118-51-06 03:13:00 Test Item Value Reference Range Interpretation Comments Monocytes (test code = Monocytes) 5.6 2.0-12.0 [facility] CenterOlfrjomIOAQRHLZHV4969-99-64 03:13:00 Test Item Value Reference Range Interpretation Comments Eosinophils # (test code 0.1 See_Comment [A utomated message] The = Eosinophils #) system wh h generated this result tra nsmitted reference range : <=0.5. The reference r didier was not used to int erpret this result as normal/abnormal . [facility] CenterEoaisqcKBOZIETHQL0318-04-78 03:13:00 Test Item Value Reference Range Interpretation Comments Monocytes # (test code 0.4 See_Comment [Aut omated message] The = Monocytes #) system which generated this result tra nsmitted reference range : <=0.8. The reference r didier was not used to int erpret this result as normal/abnormal . [facility] CenterZhsnpyoHIJXOAGCPB8852-51-90 03:13:00 Test Item Value Reference Range Interpretation Comments Basophils (test code = 0.6 See_Comment [Aut omated message] The Basophils) system which ge nerated this result tra nsmitted reference range : <=1.0. The reference r didier was not used to int erpret this result as normal/abnormal . [facility] CenterNrumvfjRHGJNNMRSC9176-03-04 03:13:00 Test Item Value Reference Range Interpretation Comments Lymphocytes # (test code = Lymphocytes 3.2 1.0-5.5 #) [facility] CenterCxcdfgnEBJFGNOCXI3176-47-70 03:13:00 Test Item Value Reference Range Interpretation Comments Segs-Bands # (test code = Segs-Bands #) 3.9 1.5-8.1 [facility] CenterFhydhqnVHCAOYPZVF1531-34-95 03:13:00 Test Item Value Reference Range Interpretation Comments PTT (test code = PTT) 31.0 s 22.9-35.8 [facility] CenterZzqqtayIVZRRIOYNP2831-65-76 03:13:00 Test Item Value Reference Range Interpretation Comments PT (test code = PT) 13.5 s 12.0-14.7 [facility] CenterGxknmeuUGNBAQHCYJ9575-42-53 03:13:00 Test Item Value Reference Range Interpretation Comments INR (test code = INR) 1.03 1 0.85-1.17 [facility] CenterGcelnsiCTQXNOOESU1334-00-84 03:13:00 Test Item Value Reference Range Interpretation Comments WBC (test code = WBC) 7.7 3.7-10.4 [facility] CenterChzkokbGNXYIPXFQK4499-09-93 03:13:00 Test Item Value Reference Range Interpretation Comments Hgb (test code = Hgb) 14.8 12.0-16.0 [facility] CenterAcgmacvYJOPOCTYBR0392-34-32 03:13:00 Test Item Value Reference Range Interpretation Comments RBC (test code = RBC) 5.26 4.20-5.40 [facility] CenterHhqnzljDUTRWXLZRJ2806-65-91 03:13:00 Test Item Value Reference Range Interpretation Comments MCH (test code = MCH) 28.2 pg 27.0-31.0 [facility] CenterRscvgrwPGWZXADJRQ3996-67-09 03:13:00 Test Item Value Reference Range Interpretation Comments MCV (test code = MCV) 84.8 80.0-98.0 [facility] CenterHfobzyuTGCBNWBZQJ1489-74-67 03:13:00 Test Item Value Reference Range Interpretation Comments Hct (test code = Hct) 44.6 36.0-48.0 [facility] CenterEjhkufsGPXRMMINQI6818-12-21 03:13:00 Test Item Value Reference Range Interpretation Comments MCHC (test code = MCHC) 33.3 32.0-36.0 [facility] CenterZwbhrrdBVLCJVYITT5236-05-62 03:13:00 Test Item Value Reference Range Interpretation Comments Platelet (test code = Platelet) 224 250-450 [facility]GgpgngxTFBXQUORPY0970-56-28 03:13:00 Test Item Value Reference Range Interpretation Comments RDW (test code = RDW) 15.3 11.5-14.5 [facility] CenterDirbvgsRTQGMXLFBG0193-42-84 03:13:00 Test Item Value Reference Range Interpretation Comments MPV (test code = MPV) 7.0 7.4-10.4 [facility] UDSFL3879-58-10 04:30:00 Test Item Value Reference Range Interpretation Comments Lactic Acid Lvl (test code = Lactic 0.7 0.5-2.2 Acid Lvl) [facility] AND [id number] 23:45:00 Test Item Value Reference Range Interpretation Comments UA Nitrite (test code Positive *ABN*(06/05/17 = UA Nitrite) 6:45 PM) [facility] AND [id number] 23:45:00 Test Item Value Reference Range Interpretation Comments UA Leuk Est (test Negative (06/05/17 6:45 code = UA Leuk Est) PM) [facility] AND [id number] 23:45:00 Test Item Value Reference Range Interpretation Comments UA Blood (test code = Negative (06/05/17 6:45 UA Blood) PM) [facility] AND [id number] 23:45:00 Test Item Value Reference Range Interpretation Comments UA Urobilinogen (test code = UA 0.2 0.1-1.0 Urobilinogen) [facility] AND [id number] 23:45:00 Test Item Value Reference Range Interpretation Comments UA Bili (test code = Negative *NA*(06/05/17 UA Bili) 6:45 PM) [facility] AND [id number] 23:45:00 Test Item Value Reference Range Interpretation Comments UA Glucose (test code Negative (06/05/17 6:45 = UA Glucose) PM) [facility] AND [id number] 23:45:00 Test Item Value Reference Range Interpretation Comments UA Ketones (test code = Trace *ABN*(06/05/17 UA Ketones) 6:45 PM) [facility] AND [id number] 23:45:00 Test Item Value Reference Range Interpretation Comments UA Spec Grav (test code *NA*(06/05/17 6:45 PM) = UA Spec Grav) [facility] AND [id number] 23:45:00 Test Item Value Reference Range Interpretation Comments UA Turbidity (test code = Clear (06/05/17 6:45 UA Turbidity) PM) [facility] AND [id number] 23:45:00 Test Item Value Reference Range Interpretation Comments UA Color (test code = Yellow *NA*(06/05/17 UA Color) 6:45 PM) [facility] AND [id number] 23:45:00 Test Item Value Reference Range Interpretation Comments UA Protein (test code Negative (06/05/17 6:45 = UA Protein) PM) [facility] AND [id number] 23:45:00 Test Item Value Reference Range Interpretation Comments UA pH (test code = UA pH) 6.0 1 5.0-8.0 [facility] AND [id number] 23:45:00 Test Item Value Reference Range Interpretation Comments UA RBC (test None Seen See_Comment [Automated mes nestor] code = UA RBC) (06/05/17 6:45 The system w hich PM) generated this result transmitted ref erence range: <=2. The reference range was not used to int erpret this result as normal/abnormal . [facility] AND [id number] 23:45:00 Test Item Value Reference Range Interpretation Comments UA Sq Epi (test code = UA Sq Occasional /LPF Epi) [facility] AND [id number] 23:45:00 Test Item Value Reference Range Interpretation Comments UA Bacteria (test code = UA Many /HPF Bacteria) [facility] AND [id number] 23:45:00 Test Item Value Reference Range Interpretation Comments UA WBC (test code = UA WBC) 3-5 /HPF [facility] MxxlfeqEHNBABIKEY4352-05-16 22:51:00 Test Item Value Reference Range Interpretation Comments CDC HIV 4th GEN (test Negative *NA*(06/05/17 code = CDC HIV 4th 5:51 PM) GEN) [facility]OrauileIYTKHQRHSE3566-21-09 22:42:00 Test Item Value Reference Range Interpretation Comments K-time Rapid (test code = K-time 1.9 min 0.6-2.3 Rapid) [facility] CenterIcudkmfGEIUDWYFVE5339-47-50 22:42:00 Test Item Value Reference Range Interpretation Comments Split Point Rapid (test code = Split 0.6 min Point Rapid) [facility] CenterGbbjnweXKUXILEUNC7444-04-44 22:42:00 Test Item Value Reference Range Interpretation Comments ACT (TEG) Rapid (test code = ACT (TEG) 113 s 86-118 Rapid) [facility] CenterPczuompVWHIKKTYEE7254-41-72 22:42:00 Test Item Value Reference Range Interpretation Comments RDW (test code = RDW) 15.8 11.5-14.5 [facility] CenterCyhvijfAETMWPPMFN4019-88-88 22:42:00 Test Item Value Reference Range Interpretation Comments MCHC (test code = MCHC) 33.2 32.0-36.0 [facility] CenterIeplareOWGWENCHMB8905-31-34 22:42:00 Test Item Value Reference Range Interpretation Comments MPV (test code = MPV) 6.9 7.4-10.4 [facility] CenterDzwtnmoFZLFNSZBWK1004-43-41 22:42:00 Test Item Value Reference Range Interpretation Comments Platelet (test code = Platelet) 165 133-450 [facility] CenterWckxatmUPMDBXMACF6419-51-63 22:42:00 Test Item Value Reference Range Interpretation Comments MCH (test code = MCH) 29.1 pg 27.0-31.0 [facility] CenterUbnhzgmUSZTKRXXAZ3601-52-30 22:42:00 Test Item Value Reference Range Interpretation Comments MCV (test code = MCV) 87.7 80.0-98.0 [facility] CenterNjfcuqrHBYNLMAMDK0401-37-86 22:42:00 Test Item Value Reference Range Interpretation Comments RBC (test code = RBC) 4.64 4.20-5.40 [facility] CenterDjporsqVLYSGWDZFX2160-12-39 22:42:00 Test Item Value Reference Range Interpretation Comments Hct (test code = Hct) 40.7 36.0-48.0 [facility] CenterDdyslsmQHLLBUFQPN5389-27-00 22:42:00 Test Item Value Reference Range Interpretation Comments WBC (test code = WBC) 13.2 3.7-10.4 [facility] CenterHzkifxaWQZOIENWZT7869-62-71 22:42:00 Test Item Value Reference Range Interpretation Comments Hgb (test code = Hgb) 13.5 12.0-16.0 [facility] CenterEvfhuiiLAWCXUJEHG6026-88-66 22:42:00 Test Item Value Reference Range Interpretation Comments Segs (test code = Segs) 82.6 45.0-75.0 [facility] CenterEyrxqiuFEKRPIFGTZ6225-65-72 22:42:00 Test Item Value Reference Range Interpretation Comments Lymphocytes (test code = Lymphocytes) 11.8 20.0-40.0 [facility] CenterYirbugeJOVTIWEDLL4307-18-39 22:42:00 Test Item Value Reference Range Interpretation Comments Lymphocytes # (test code = Lymphocytes 1.6 1.0-5.5 #) [facility] CenterOhymumuPNTPTTVSLS5905-74-94 22:42:00 Test Item Value Reference Range Interpretation Comments Basophils (test code = 0.2 See_Comment [Aut omated message] The Basophils) system which ge nerated this result tra nsmitted reference range : <=1.0. The reference r didier was not used to int erpret this result as normal/abnormal . [facility] CenterIxjfkfxHVEKHPTLUI3573-34-79 22:42:00 Test Item Value Reference Range Interpretation Comments Segs-Bands # (test code = Segs-Bands #) 10.9 1.5-8.1 [facility] CenterTxnrhfoNVVRKPSDPO8586-38-19 22:42:00 Test Item Value Reference Range Interpretation Comments Eosinophils (test code = 0.4 See_Comment [A utomated message] The Eosinophils) system which ge nerated this result tra nsmitted reference range : <=4.0. The reference r didier was not used to int erpret this result as normal/abnormal . [facility] CenterMrjxcnaDGRUNUMISC4309-24-23 22:42:00 Test Item Value Reference Range Interpretation Comments Monocytes (test code = Monocytes) 5.0 2.0-12.0 [facility] CenterFxtcmvqVHMMMLEFKU8014-41-85 22:42:00 Test Item Value Reference Range Interpretation Comments Eosinophils # (test code 0.1 See_Comment [A utomated message] The = Eosinophils #) system [facility] generated this result tra nsmitted reference range : <=0.5. The reference r didier was not used to int erpret this result as normal/abnormal . [facility] CenterUywowmoOOFODZGVHO2355-53-52 22:42:00 Test Item Value Reference Range Interpretation Comments Monocytes # (test code 0.7 See_Comment [Aut omated message] The = Monocytes #) system which generated this result tra nsmitted reference range : <=0.8. The reference r didier was not used to int erpret this result as normal/abnormal . [facility] [employer] [id number] 22:42:00 Test Item Value Reference Range Interpretation Comments Antibody Scrn (test Negative (06/05/17 5:42 code = Antibody Scrn) PM) [facility] [employer] [id number] 22:42:00 Test Item Value Reference Range Interpretation Comments ABO/Rh (test code = ABO/Rh) A NEG [facility] [employer] [id number] 22:42:00 Test Item Value Reference Range Interpretation Comments Lactic Acid Lvl (test code = Lactic 2.7 0.5-2.2 Acid Lvl) [facility] [employer] [id number] 22:42:00 Test Item Value Reference Range Interpretation Comments eGFR (test code = eGFR) [address] [facility] [employer] [id number] 22:42:00 Test Item Value Reference Range Interpretation Comments CO2 (test code = CO2) 22 24-[address] [facility] [employer] [id number] 22:42:00 Test Item Value Reference Range Interpretation Comments Calcium Lvl (test code = Calcium Lvl) 8.6 8.5-10.[address] [facility] [employer] [id number] 22:42:00 Test Item Value Reference Range Interpretation Comments AGAP (test code = AGAP) 17.2 10.0-20.[address] [facility] [employer] [id number] 22:42:00 Test Item Value Reference Range Interpretation Comments Creatinine Lvl (test code = Creatinine 1.04 0.50-1.40 Lvl) [facility] [employer] [id number] 22:42:00 Test Item Value Reference Range Interpretation Comments Sodium Lvl (test code = Sodium Lvl) 138 135-[address] [facility] [employer]2018-04-19 22:42:00 Test Item Value Reference Range Interpretation Comments Chloride Lvl (test code = Chloride Lvl) 102 95-[address] [facility] [employer] [id number] 22:42:00 Test Item Value Reference Range Interpretation Comments Potassium Lvl (test code = Potassium 3.2 3.5-5.1 Lvl) [facility] [employer] [id number] 22:42:00 Test Item Value Reference Range Interpretation Comments BUN (test code = BUN) 13 7-22 [facility] [id number] 22:42:00 Test Item Value Reference Range Interpretation Comments Glucose Lvl (test code = Glucose Lvl) 117 70-99 [facility]ZgltfjwDAHSGFYFJVNRI1683-10-02 22:42:00 Test Item Value Reference Range Interpretation Comments S Preg (test code = S Negative *NA*(06/05/17 Preg) 5:42 PM) [facility] CenterPrnuznsEGJOWWKZQO5902-29-69 22:42:00 Test Item Value Reference Range Interpretation Comments Max Amplitude Rapid (test code = Max 58 mm 52-71 Amplitude Rapid) [facility] CenterQetznwsUAOLYYWHKD4877-05-90 22:42:00 Test Item Value Reference Range Interpretation Comments G-value Rapid (test code = G-value 6.8 5.0-11.6 Rapid) [facility] CenterQjthlmjIJQTSAKLWD0156-54-75 22:42:00 Test Item Value Reference Range Interpretation Comments Estimated % Lysis Rapid 2.5 See_Comment [Au tomated message] The (test code = Estimated syste m which generated % Lysis Rapid) this result t ransmitted reference range : <=7.5. The reference r didier was not used to int erpret this result as normal/abnormal . [facility] CenterApokupcDGQSNUDQIQ7504-47-12 22:42:00 Test Item Value Reference Range Interpretation Comments R-time Rapid (test code = R-time 0.7 min 0.4-0.7 Rapid) [facility] CenterTyrzjfgQBLBVOPTJK2046-29-83 22:42:00 Test Item Value Reference Range Interpretation Comments Angle Rapid (test code = Angle 72 degrees 64-80 Rapid) [facility] AND [id number] 00:01:00 Test Item Value Reference Range Interpretation Comments UA Bacteria (test code = UA Occasional /HPF Bacteria) [facility] AND [id number] 00:01:00 Test Item Value Reference Range Interpretation Comments UA RBC (test None Seen See_Comment [Automated mes nestor] code = UA RBC) (12/02/14 7:01 The system which PM) generated this result transmitted ref erence range: <=2. The reference range was not used to int erpret this result as normal/abnormal . [facility] AND [id number] 00:01:00 Test Item Value Reference Range Interpretation Comments UA Sq Epi (test code = UA Sq Epi) Few /[facility]F [facility] [id number] 00:01:00 Test Item Value Reference Range Interpretation Comments UA WBC (test code = UA WBC) 0-2 /HPF [facility] [id number] 00:01:00 Test Item Value Reference Range Interpretation Comments UA Mucus (test code = UA Mucus) Few /LPF [facility] [id number] 00:01:00 Test Item Value Reference Range Interpretation Comments UA Blood (test code = Negative (12/02/14 7:01 UA Blood) PM) [facility] [id number] 00:01:00 Test Item Value Reference Range Interpretation Comments UA Bili (test code = Negative *NA*(12/02/14 UA Bili) 7:01 PM) [facility] [id number] 00:01:00 Test Item Value Reference Range Interpretation Comments UA pH (test code = UA pH) 6.0 1 5.0-8.0 [facility] AND [id number] 00:01:00 Test Item Value Reference Range Interpretation Comments UA Turbidity (test code = Clear (12/02/14 7:01 UA Turbidity) PM) [facility] [id number] 00:01:00 Test Item Value Reference Range Interpretation Comments UA Color (test code = Yellow *NA*(12/02/14 UA Color) 7:01 PM) [facility] [id number] 00:01:00 Test Item Value Reference Range Interpretation Comments UA Spec Grav (test code = UA Spec 1.020 1 Grav) [facility] [id number] 00:01:00 Test Item Value Reference Range Interpretation Comments UA Ketones (test code = UA Negative mg/dL Ketones) [facility] [id number] 00:01:00 Test Item Value Reference Range Interpretation Comments UA Glucose (test code = UA Negative mg/dL Glucose) [facility] [id number] 00:01:00 Test Item Value Reference Range Interpretation Comments UA Protein (test code = UA Negative mg/dL Protein) [facility] [id number] 00:01:00 Test Item Value Reference Range Interpretation Comments UA Leuk Est (test Negative (12/02/14 7:01 code = UA Leuk Est) PM) [facility] [id number] 00:01:00 Test Item Value Reference Range Interpretation Comments UA Nitrite (test code Negative (12/02/14 7:01 = UA Nitrite) PM) [facility] [id number] 00:01:00 Test Item Value Reference Range Interpretation Comments UA Urobilinogen (test code = UA 0.2 0.1-1.0 Urobilinogen) [facility] [id number] 00:01:00 Test Item Value Reference Range Interpretation Comments Micro? (test code = Not Indicated Micro?) *NA*(12/02/14 7:01 PM) [facility] [id number] 00:01:00 Test Item Value Reference Range Interpretation Comments U Preg (test code = U Positive *ABN*(12/02/14 Preg) 7:01 PM) [facility] [id number] 20:37:28 Test Item Value Reference Range Interpretation Comments UA Glucose (test code = UA Negative mg/dL Glucose) [facility] [id number] 20:37:28 Test Item Value Reference Range Interpretation Comments UA Protein (test code = UA Negative mg/dL Protein) [facility] [id number] 20:37:28 Test Item Value Reference Range Interpretation Comments UA Blood (test code = Negative (12/28/13 2:37 UA Blood) PM) [facility] [id number] 20:37:28 Test Item Value Reference Range Interpretation Comments UA Bili (test code = Negative *NA*(12/28/13 UA Bili) 2:37 PM) [facility] [id number] 20:37:28 Test Item Value Reference Range Interpretation Comments UA Ketones (test code = UA Negative mg/dL Ketones) [facility] [id number] 20:37:28 Test Item Value Reference Range Interpretation Comments UA Nitrite (test code Negative (12/28/13 2:37 = UA Nitrite) PM) [facility] [id number] 20:37:28 Test Item Value Reference Range Interpretation Comments UA Leuk Est (test Negative (12/28/13 2:37 code = UA Leuk Est) PM) [facility] AND [id number] 20:37:28 Test Item Value Reference Range Interpretation Comments UA Urobilinogen (test code = UA 0.2 0.1-1.0 Urobilinogen) [facility] AND [id number] 20:37:28 Test Item Value Reference Range Interpretation Comments UA pH (test code = UA pH) 6.0 1 5.0-8.0 [facility] AND [id number] 20:37:28 Test Item Value Reference Range Interpretation Comments UA Spec Grav (test code = UA Spec 1.015 1 Grav) [facility] AND [id number] 20:37:28 Test Item Value Reference Range Interpretation Comments UA Color (test code = Yellow *NA*(12/28/13 UA Color) 2:37 PM) [facility] AND [id number] 20:37:28 Test Item Value Reference Range Interpretation Comments UA Turbidity (test code = Clear (12/28/13 2:37 UA Turbidity) PM) [facility] AND [id number] 20:37:28 Test Item Value Reference Range Interpretation Comments UA RBC (test None Seen See_Comment [Automated mes nestor] code = UA RBC) (12/28/13 2:37 The system which PM) generated this result transmitted ref erence range: <=2. The reference range was not used to int erpret this result as normal/abnormal . [facility] AND [id number] 20:37:28 Test Item Value Reference Range Interpretation Comments UA Bacteria (test code = UA Few /HPF Bacteria) [facility] AND [id number] 20:37:28 Test Item Value Reference Range Interpretation Comments UA Mucus (test code = UA Mucus) Rare /LPF [facility] AND [id number] 20:37:28 Test Item Value Reference Range Interpretation Comments UA Sq Epi (test code = UA Sq Epi) Few /LPF [facility] [id number] 20:37:28 Test Item Value Reference Range Interpretation Comments UA WBC (test code = UA WBC) 0-2 /HPF [facility] [id number] 17:40:00 Test Item Value Reference Range Interpretation Comments ABO/Rh (test code = ABO/Rh) A NEG [facility] [id number] 17:40:00 Test Item Value Reference Range Interpretation Comments Antibody Scrn (test Positive 1(12/28/13 code = Antibody Scrn) 11:40 AM) [facility] [id number] 17:40:00 Test Item Value Reference Range Interpretation Comments Path AB (test code An anti-Le(a) antibody is = Path AB) detected in this patient s serum. This [...] and concur with the resident's interpretation. CPT: 91060-SU [facility] [id number] 17:40:00 Test Item Value Reference Range Interpretation Comments AB Int (test code = AB Int) Anti-Le(a) [facility] [id number] 17:39:00 Test Item Value Reference Range Interpretation Comments Lactic Acid Lvl (test code = Lactic 1.5 0.5-2.2 Acid Lvl) [facility]2014-11-11 17:39:00 Test Item Value Reference Range Interpretation Comments eGFR (test code = eGFR) 78 [facility]2014-11-11 17:39:00 Test Item Value Reference Range Interpretation Comments CO2 (test code = CO2) 27 24-32 [facility]2014-11-11 17:39:00 Test Item Value Reference Range Interpretation Comments Calcium Lvl (test code = Calcium Lvl) 7.7 8.5-10.5 [facility]2014-11-11 17:39:00 Test Item Value Reference Range Interpretation Comments Sodium Lvl (test code = Sodium Lvl) 145 135-145 [facility]2014-11-11 17:39:00 Test Item Value Reference Range Interpretation Comments Creatinine Lvl (test code = Creatinine 1.0 0.5-1.4 Lvl) [facility]2014-11-11 17:39:00 Test Item Value Reference Range Interpretation Comments Chloride Lvl (test code = Chloride Lvl) 108 95-109 [place] 197214-11-11 17:39:00 Test Item Value Reference Range Interpretation Comments Potassium Lvl (test code = Potassium 3.4 3.5-5.1 Lvl) [facility]2014-11-11 17:39:00 Test Item Value Reference Range Interpretation Comments BUN (test code = BUN) 12 7-22 [place] 197214-11-11 17:39:00 Test Item Value Reference Range Interpretation Comments Glucose Lvl (test code = Glucose Lvl) 76 70-99 [facility]2014-11-11 17:39:00 Test Item Value Reference Range Interpretation Comments AGAP (test code = AGAP) 13.4 10.0-20.0 [facility]HFZNWGQS6263-[facility] 17:39:00 Test Item Value Reference Range Interpretation Comments Max Amp (test code = Max Amp) 47 mm 52-71 [place] [id number] 17:39:00 Test Item Value Reference Range Interpretation Comments G-value (test code = G-value) 4.4 5.0-11.6 [place] [id number] 17:39:00 Test Item Value Reference Range Interpretation Comments Estimated % Lysis (test 1.4 See_Comment [Au tomated message] The code = Estimated % system wh ich generated Lysis) this result tra nsmitted reference range : <=7.5. The reference r didier was not used to int erpret this result as normal/abnormal . [facility] CenterKnxbijcGHSFIVHFRA0959-45-65 17:39:00 Test Item Value Reference Range Interpretation Comments Angle (test code = Angle) 52 degrees 64-80 [place] 483914-11-11 17:39:00 Test Item Value Reference Range Interpretation Comments K-time (test code = K-time) 3.5 min 0.6-2.3 [place] [address]-11-11 17:39:00 Test Item Value Reference Range Interpretation Comments R-time (test code = R-time) 1.0 min 0.4-0.7 [place] [address]-11-11 17:39:00 Test Item Value Reference Range Interpretation Comments Split Point (test code = Split Point) 0.7 min [facility]VgrhxouGARMTVIDOE2562-50-12 17:39:00 Test Item Value Reference Range Interpretation Comments ACT (TEG) (test code = ACT (TEG)) 144 s 86-118 [facility] CenterBuagpxdPNXEKAFBIO9676-45-08 17:39:00 Test Item Value Reference Range Interpretation Comments Rapid TEG Sample Type Citrated Whole Blood (test code = Rapid TEG Sample Type) [facility] CenterGolfnziGNQLNCPECF1774-78-60 17:39:00 Test Item Value Reference Range Interpretation Comments Hct (test code = Hct) 45.2 36.0-48.0 [facility] CenterCbkoiphLODPFDVMTC3384-26-52 17:39:00 Test Item Value Reference Range Interpretation Comments RBC (test code = RBC) 4.83 4.20-5.40 [facility] Cent[id number] 17:39:00 Test Item Value Reference Range Interpretation Comments Hgb (test code = Hgb) 15.3 12.0-16.0 [facility] CenterMzcxpuwQKVHMCAEPW2391-51-22 17:39:00 Test Item Value Reference Range Interpretation Comments MCV (test code = MCV) 93.7 80.0-98.0 [facility] CenterSnuhvccLFIIGUAUYN6491-15-34 17:39:00 Test Item Value Reference Range Interpretation Comments WBC (test code = WBC) 10.2 3.7-10.4 [facility] CenterKcotkwhTMHWAXAEHR7752-37-27 17:39:00 Test Item Value Reference Range Interpretation Comments MPV (test code = MPV) 7.4 7.4-10.4 [facility] CenterInxpzhjSJKTGVKWVN8131-56-16 17:39:00 Test Item Value Reference Range Interpretation Comments Platelet (test code = Platelet) 164 133-450 [facility] CenterZtyzjeyJXFGFJEOQT1379-28-52 17:39:00 Test Item Value Reference Range Interpretation Comments RDW (test code = RDW) 13.1 11.5-14.5 [facility] CenterFttshrnFJTYGRCZQI8673-94-21 17:39:00 Test Item Value Reference Range Interpretation Comments MCHC (test code = MCHC) 33.7 32.0-36.0 [facility] CenterSpbvzlpWTWXOVJZAX7519-50-65 17:39:00 Test Item Value Reference Range Interpretation Comments MCH (test code = MCH) 31.6 pg 27.0-31.0 [facility] CenterWwarxsyUSKRLMVGLB0752-78-13 17:39:00 Test Item Value Reference Range Interpretation Comments Segs-Bands # (test code = Segs-Bands #) 7.7 1.5-8.1 [facility] CenterBaruadiYRQBYMQNDA5044-01-38 17:39:00 Test Item Value Reference Range Interpretation Comments Basophils (test code = 0.0 See_Comment [Aut omated message] The Basophils) system which ge nerated this result tra nsmitted reference range : <=1.0. The reference r didier was not used to int erpret this result as normal/abnormal . [facility] CenterYalwqdzKJFMIRPJUP6592-47-85 17:39:00 Test Item Value Reference Range Interpretation Comments Eosinophils (test code = 1.3 See_Comment [A utomated message] The Eosinophils) system which ge nerated this result tra nsmitted reference range : <=4.0. The reference r didier was not used to int erpret this result as normal/abnormal . [facility] CenterSrrzdazYGBKHOEKMN0046-93-97 17:39:00 Test Item Value Reference Range Interpretation Comments Eosinophils # (test code 0.1 See_Comment [A utomated message] The = Eosinophils #) system whic h generated this result tra nsmitted reference range : <=0.5. The reference r didier was not used to int erpret this result as normal/abnormal . [facility] CenterKkayjkrRIRTZFLBVX8059-75-31 17:39:00 Test Item Value Reference Range Interpretation Comments Monocytes # (test code 0.6 See_Comment [Aut omated message] The = Monocytes #) system which generated this result tra nsmitted reference range : <=0.8. The reference r didier was not used to int erpret this result as normal/abnormal . [facility] Cent[id number] 17:39:00 Test Item Value Reference Range Interpretation Comments Lymphocytes # (test code = Lymphocytes 1.8 1.0-5.5 #) [facility] CenterSxbvptmOXWPMMHDTX0645-90-99 17:39:00 Test Item Value Reference Range Interpretation Comments Basophils # (test code 0.0 See_Comment [Aut omated message] The = Basophils #) system which generated this result tra nsmitted reference range : <=0.2. The reference r didier was not used to int erpret this result as normal/abnormal . [facility] CenterKedkineAKROVYJSBQ7915-96-36 17:39:00 Test Item Value Reference Range Interpretation Comments Segs (test code = Segs) 75.1 45.0-75.0 [facility] CenterZgimwgrFSVCQUGHED0108-45-13 17:39:00 Test Item Value Reference Range Interpretation Comments Plt Morph (test code = Normal (12/28/13 11:39 Plt Morph) AM) [facility] CenterUwjtrsdLGEKLHRVXL8679-49-59 17:39:00 Test Item Value Reference Range Interpretation Comments Monocytes (test code = Monocytes) 6.1 2.0-12.0 [facility] CenterRzxnobrHDCCLZYFZI5651-11-28 17:39:00 Test Item Value Reference Range Interpretation Comments Lymphocytes (test code = Lymphocytes) 17.5 20.0-40.0 [facility] CenterIbtgydzRXTWMFQETO2819-93-63 17:39:00 Test Item Value Reference Range Interpretation Comments RBC Morph (test code = Normal (12/28/13 11:39 RBC Morph) AM) [facility]wdfhqnLNDGYHRHES7404-65-02 17:39:00 Test Item Value Reference Range Interpretation Comments Etoh (%) (test code = Etoh (%)) 0.097 [facility]hZFGRQZOFTK7482-88-28 17:39:00 Test Item Value Reference Range Interpretation Comments Ethanol Lvl (test code = Ethanol Lvl) 97 [facility]2014-11-11 17:36:00 Test Item Value Reference Range Interpretation Comments U Opiate Scr (test Negative *NA*(12/28/13 code = U Opiate Scr) 11:36 AM) [id number] 17:36:00 Test Item Value Reference Range Interpretation Comments U Cannab Scr (test Positive *ABN*(12/28/13 code = U Cannab Scr) 11:36 AM) [facility] [id number] 17:36:00 Test Item Value Reference Range Interpretation Comments U Cocaine Scr (test Negative *NA*(12/28/13 code = U Cocaine Scr) 11:36 AM) [facility]2014-11-11 17:36:00 Test Item Value Reference Range Interpretation Comments U Benzodia Scr (test Positive code = U Benzodia Scr) *ABN*(12/28/13 11:36 AM) [id number] 17:36:00 Test Item Value Reference Range Interpretation Comments U Phencyc Scr (test Negative *NA*(12/28/13 code = U Phencyc Scr) 11:36 AM) [facility] [id number] 17:36:00 Test Item Value Reference Range Interpretation Comments UDS Note (test code = See Note 4(12/28/13 UDS Note) 11:36 AM) [facility] [id number] 17:36:00 Test Item Value Reference Range Interpretation Comments U Estela Scr (test code Negative *NA*(12/28/13 = U Estela Scr) 11:36 AM) [facility] [id number] 17:36:00 Test Item Value Reference Range Interpretation Comments U Amph Scr (test code Negative *NA*(12/28/13 = U Amph Scr) 11:36 AM) [facility]
[2021-06-19 08:49] LABS: Absolute Lymphocytes (CBC) 2.2 K/uL (0.7-4.9); Hematocrit 39.5 % (36.0-45.0); Lymphocytes % 29.9 % (15.3-44.8); MPV 7.1 fL (7.6-11.3); RBC Red Blood Cell Count 4.55 M/uL (3.86-4.86)
[2021-06-19 08:54] LABS: Urine Blood Negative (Negative); Urine Glucose Negative (Negative); Urine Protein Negative (Negative); Urine pH 5.5 (5.0-7.0)
[2021-06-19 09:07] LABS: Albumin 3.8 g/dL (3.4-5.0); Bilirubin Total 0.6 mg/dL (0.2-1.0); Potassium 3.8 mmol/L (3.5-5.1)
[2021-06-19 09:15] LABS: Urine Bacteria >50 /HPF (<20); Urine Mucus 1+ /HPF (NONE SEEN); Urine RBC <5 /HPF (NONE SEEN)
--- NOTE | 2021-06-19 09:35 | RAD REPORT ---
EXAM DESCRIPTION: CTAbdomen Pelvis W Contrast - 06/19/2021 9:20 am CLINICAL HISTORY: Abdominal pain. low back pain, suprapubic pain, dysuria COMPARISON: No comparisons TECHNIQUE: Biphasic CT imaging of the abdomen and pelvis was performed with 100 ml non-ionic IV cont rast. All CT scans are performed using dose optimization technique as appropriate and may include automated exposure control or mA/KV adjustment according to patient size. FINDINGS: The lung bases are clear. The liver, spleen, pancreas, adrenal glands and left kidney are within normal limits. Multiple defect s are present in the right kidney likely related to prior infection. No bowel obstruction, free air, free fluid or abscess. Nonvisualization of the appendix. No evidenc e of significant lymphadenopathy. Filling defect is seen in the right common iliac vein which could be an area of thrombus. No suspicious bony findings. IMPRESSION: No acute intra-abdominal or pelvic finding. Filling defect in the right common iliac vein could be thrombus (image 50/96).
[2021-06-19 09:49] LABS: Barbiturates NEGATIVE (NEGATIVE); Benzodiazepines POSITIVE (NEGATIVE); Cocaine NEGATIVE (NEGATIVE); METHAMPHETAM POSITIVE (NEGATIVE); Methadone NEGATIVE (NEGATIVE); Opiates NEGATIVE (NEGATIVE); Phencyclidine NEGATIVE (NEGATIVE); THC Cannibis NEGATIVE (NEGATIVE)
[2021-06-19] MEDS ORDERED: NA CHLORIDE 0.9% 1,000 ML ONE (10:58)
[2021-06-19] MEDS ORDERED: ONDANSETRON 4 MG/2 ML VIAL ONE (11:16)
[2021-06-19] MEDS ORDERED: KETOROLAC 30 MG/ML INJ ONE (11:16)
[2021-06-19] MEDS ORDERED: CIPROFLOXACIN HCL 500 MG TAB ONE (11:16)
--- NOTE | 2021-06-19 11:36 | ER ---
Nurse's Notes [facility] Name: David Lira Age: 36 yrs Sex: Female : 1985 Arrival Date: 06/19/2021 Time: 07:42 Bed DIS2 Private MD: Diagnosis: UTI/ Urinary tract infection, site not specified;Other stimulant abuse;Possible right common iliac vein thrombus Presentation: 06/19 08:24 Chief complaint: Patient states: Abd and low back pain started again yesterday. Has ll1 been happening off/on for 7 years. No fever. Reports increased urination. Coronavirus screen: Vaccine status: Patient reports receiving the 2nd dose of the covid vaccine. Client denies travel out of the [place] in the last 14 days. At this time, the client does not indicate any symptoms associated with coronavirus-19. Ebola Screen: Patient denies travel to an Ebola-affected area in the 21 days before illness onset. Initial Sepsis Screen: Does the patient meet any 2 criteria? No. Patient's initial sepsis screen is negative. Does the patient have a suspected source of infection? Yes: Dysuria/Frequency/Urgency/UTI. Risk Assessment: Do you want to hurt yourself or someone else? Patient reports no desire to harm self or others. Onset of symptoms was June 18, 2021. 08:24 Method Of Arrival: Ambulatory ll1 08:24 Acuity: ROSMERY 3 ll1 Historical: - Allergies: 08:23 PENICILLINS; ll1 - PMHx: 08:23 Asthma; Chronic pain; Hypertensive disorder; ll1 - PSHx: 08:23 jaw SX; ll1 - Immunization history:: Client reports receiving the 2nd dose of the Covid vaccine. - Social history:: Smoking status: Patient reports the use of cigarette tobacco products, smokes one-half pack cigarettes per day. Screenin:33 Abuse screen: Denies threats or abuse. Nutritional screening: No deficits noted. ll1 Tuberculosis screening: No symptoms or risk factors identified. Assessment: 10:33 Reassessment: No changes from previously documented assessment. Patient and/or family ll1 updated on plan of care and expected duration. Pain level reassessed. Patient is alert, oriented x 3, equal unlabored respirations, skin warm/dry/pink. 11:00 General: Appears in no apparent distress. comfortable, Behavior is calm, cooperative. ss Respiratory: Respiratory effort is even, unlabored, Respiratory pattern is regular, symmetrical. Derm: Skin is intact, is healthy with good turgor, Skin is pink, warm \T\ dry. normal. 11:18 Reassessment: Patient appears in no apparent distress at this time. Awaiting fluids to complete prior to discharge. Vital Signs: 08:24 BP 108 / 66; Pulse 89; Resp 17; Temp 97.9; Pulse Ox 97% ; Weight 73.48 kg; Height 5 ft. ll1 4 in. (162.56 cm); Pain 8/10; 08:24 Body Mass Index 27.81 (73.48 kg, 162.56 cm) 1 ED Course: 07:42 Patient arrived in ED. ds1 08:08 Nathan Weathers NP is PHCP. pm1 08:08 Shai Haines MD is Attending Physician. pm1 08:23 Arm band placed on. 1 08:26 Triage completed. 1 09:03 UDS Sent. 5 09:03 Urine Microscopic Only Sent. 5 09:03 Urine collected: clean catch specimen, cloudy. 5 09:23 CT Abd/Pelvis - IV Contrast Only In Process Unspecified. EDMS 10:33 Patient has to go to her doctor's appointment. Will come back after for discharge [facility] instructions. 10:33 Patient has correct armband on for positive identification. Bed in low position. Call 1 light in reach. Side rails up X 1. Cardiac monitoring not applicable on this patient. 11:09 hSaye Espino, RN is Primary Nurse. ss 12:10 No provider procedures requiring assistance completed. IV discontinued, intact, ss bleeding controlled, No redness/swelling at site. Pressure dressing applied. Administered Medications: 10:56 Drug: NS 0.9% 1000 ml Route: IV; Rate: 1 bolus; Site: right antecubital; ss 12:10 Follow up: IV Status: 500 mL administered. Pt does not want to wait for the rest of her ss fluids to finish infusing. EULALIO Evans notified 11:17 Drug: Cipro (ciprofloxacin) 500 mg Route: PO; ss 12:10 Follow up: Response: No adverse reaction ss 11:17 Drug: Ketorolac 30 mg Route: IVP; Site: right antecubital; ss 12:39 Follow up: Response: No adverse reaction ss 11:17 Drug: Zofran (Ondansetron) 4 mg Route: IVP; Site: right antecubital; ss 12:39 Follow up: Response: No adverse reaction ss 12:00 Drug: Eliquis (apixaban) 10 mg Route: PO; ss 12:39 Follow up: Response: No adverse reaction ss Outcome: 11:36 Discharge ordered by . pm1 12:10 Discharged to home ambulatory. ss 12:10 Condition: good 12:10 Discharge instructions given to patient, Instructed on discharge instructions, follow up and referral plans. medication usage, Demonstrated understanding of instructions, follow-up care, medications, Prescriptions given X 2. 12:42 Patient left the ED. ss Signatures: Dispatcher [employer] EDFL Brina Mercado ds1 Shaye Espino RN RN ss Nathan Weathers NP [employer] pm1 Shaila Lopez 5 Nia Soto RN RN ll1
--- NOTE | 2021-06-19 11:36 | EDPHYS ---
Physician Documentation [facility] Name: David Lira Age: 36 yrs Sex: Female : 1985 Arrival Date: 06/19/2021 Time: 07:42 Bed DIS2 Private MD: ED Physician Shai Haines HPI: 06/19 08:31 This 36 yrs old Female presents to ER via Ambulatory with complaints of Kidney Pain W/ pm1 Nausea. 08:31 The patient complains of pain in the left low back and right low back. The pain does pm1 not radiate. Onset: The symptoms/episode began/occurred yesterday. Modifying factors: The symptoms are alleviated by nothing. the symptoms are aggravated by nothing. Associated signs and symptoms: Pertinent positives: dysuria, urinary frequency, Pertinent negatives: fever. Severity of pain: in the emergency department the pain is actually worse. The patient has experienced similar episodes in the past, several times. The patient has not recently seen a physician. Historical: - Allergies: 08:23 PENICILLINS; ll1 - PMHx: 08:23 Asthma; Chronic pain; Hypertensive disorder; ll1 - PSHx: 08:23 jaw SX; ll1 - Immunization history:: Client reports receiving the 2nd dose of the Covid vaccine. - Social history:: Smoking status: Patient reports the use of cigarette tobacco products, smokes one-half pack cigarettes per day. ROS: 08:31 Constitutional: Negative for fever, chills, and weight loss, Cardiovascular: Negative pm1 for chest pain, palpitations, and edema, Respiratory: Negative for shortness of breath, cough, wheezing, and pleuritic chest pain. 08:31 MS/Extremity: Negative for injury and deformity, Skin: Negative for injury, rash, and discoloration. 08:31 Neuro: Negative for headache, weakness, numbness, tingling, and seizure. 08:31 Abdomen/GI: Positive for abdominal pain, nausea, of the suprapubic area, Negative for vomiting, diarrhea, constipation. 08:31 Back: Positive for flank pain, bilaterally. 08:31 : Positive for urinary frequency. 08:31 All other systems are negative. Exam: 08:31 Constitutional: This is a well developed, well nourished patient who is awake, alert, pm1 and in no acute distress. Head/Face: Normocephalic, atraumatic. 08:31 Skin: Warm, dry with normal turgor. Normal color with no rashes, no lesions, and no evidence of cellulitis. MS/ Extremity: Pulses equal, no cyanosis. Neurovascular intact. Full, normal range of motion. 08:31 Eyes: Exam is negative for acute changes, Extraocular movements: no acute changes, Conjunctiva: normal, no injection. 08:31 ENT: Exam is negative for acute changes, Mouth: no acute changes, Lips: normal, moist, Oral mucosa: normal, pink and intact, moist. 08:31 Cardiovascular: Exam negative for acute changes, Rate: normal, Rhythm: regular, Pulses: no pulse deficits are appreciated, Heart sounds: normal, normal S1and S2. 08:31 Respiratory: Exam negative for acute changes, respiratory distress, shortness of breath. 08:31 Abdomen/GI: Exam negative for acute changes, Palpation: soft, in all quadrants, mild abdominal tenderness, in the suprapubic area. 08:31 Back: Exam negative for acute changes. 08:31 Neuro: Exam negative for acute changes, Orientation: is normal, Mentation: is normal, Motor: is normal, moves all fours. Vital Signs: 08:24 BP 108 / 66; Pulse 89; Resp 17; Temp 97.9; Pulse Ox 97% ; Weight 73.48 kg; Height 5 ft. ll1 4 in. (162.56 cm); Pain 8/10; 08:24 Body Mass Index 27.81 (73.48 kg, 162.56 cm) ll1 MDM: 08:47 Patient medically screened. pm1 11:06 ED course: Discussed with attending MD plan of care based on CT study results: possible pm1 thrombus. Will give the patient apixaban in the ER and prescription. Patient to follow up with PCP for further evaluation of possible thrombus and continued treatment if it is truly a thrombus. 11:17 Counseling: I had a detailed discussion with the patient and/or guardian regarding: the pm1 historical points, exam findings, and any diagnostic results supporting the discharge/admit diagnosis, lab results, radiology results, the need for outpatient follow up, to return to the emergency department if symptoms worsen or persist or if there are any questions or concerns that arise at home. 11:17 Special discussion: Discussed "filling defect in the right common iliac vein could be pm1 thrombus" finding by radiologist and discussed plan of care. Discussed discharge with anticoagulant treatment and patient will follow up with PCP. 11:28 Data reviewed: vital signs. Data interpreted: Pulse oximetry: on room air is 97 %. pm1 Interpretation: normal. 06/19 08:31 Order name: CBC with Diff; Complete Time: 08:59 pm1 06/19 08:31 Order name: CMP; Complete Time: 09:20 pm1 06/19 08:31 Order name: Lipase; Complete Time: 09:20 pm1 06/19 08:31 Order name: Urine Microscopic Only; Complete Time: 09:20 pm1 06/19 08:45 Order name: UDS; Complete Time: 10:01 pm1 06/19 08:54 Order name: Urine Dipstick-Ancillary; Complete Time: 08:59 EDMS 06/19 08:31 Order name: CT Abd/Pelvis - IV Contrast Only; Complete Time: 10:01 pm1 06/19 08:58 Order name: Urine --Ancillary (enter results); Complete Time: 10:01 bd 06/19 09:18 Order name: Urine Culture EDMS 06/19 08:31 Order name: IV Saline Lock; Complete Time: 10:45 pm1 06/19 08:31 Order name: Labs collected and sent; Complete Time: 10:46 pm1 06/19 08:31 Order name: Urine Dipstick-Ancillary (obtain specimen); Complete Time: 09:03 pm1 06/19 08:31 Order name: Urine Test (obtain specimen); Complete Time: 09:03 pm1 Administered Medications: 10:56 Drug: NS 0.9% 1000 ml Route: IV; Rate: 1 bolus; Site: right antecubital; ss 12:10 Follow up: IV Status: 500 mL administered. Pt does not want to wait for the rest of her ss fluids to finish infusing. EULALIO Evans notified 11:17 Drug: Cipro (ciprofloxacin) 500 mg Route: PO; ss 12:10 Follow up: Response: No adverse reaction ss 11:17 Drug: Ketorolac 30 mg Route: IVP; Site: right antecubital; ss 12:39 Follow up: Response: No adverse reaction ss 11:17 Drug: Zofran (Ondansetron) 4 mg Route: IVP; Site: right antecubital; ss 12:39 Follow up: Response: No adverse reaction ss 12:00 Drug: Eliquis (apixaban) 10 mg Route: PO; ss 12:39 Follow up: Response: No adverse reaction ss Disposition: 14:51 Co-signature as Attending Physician, Shai Haines MD. rn Disposition Summary: 06/19/21 11:36 Discharge Ordered Location: Home pm1 Problem: new pm1 Symptoms: have improved pm1 Condition: Stable pm1 Diagnosis - UTI/ Urinary tract infection, site not specified pm1 - Other stimulant abuse pm1 - Possible right common iliac vein thrombus pm1 Followup: pm1 - With: Emergency Department - When: As needed - Reason: Worsening of condition Followup: pm1 - With: Private Physician - When: 2 - 3 days - Reason: Recheck today's complaints, Continuance of care, Re-evaluation by your physician Discharge Instructions: - Discharge Summary Sheet pm1 - Urinary Tract Infection, Adult pm1 Forms: - Medication Reconciliation Form pm1 - Thank You Letter pm1 - Antibiotic Education pm1 - Prescription Opioid Use pm1 Prescriptions: - Eliquis DVT-PE Treat 30D Start 5 mg (74 tabs) Oral tablets,dose pack - take 1 tablet by ORAL route as directed Take two 5-mg tablets twice a day for 7 pm1 days, then one 5-mg tablet twice a day; 74 tablet; Refills: 0, Product Selection Permitted - Cipro 500 mg Oral Tablet - take 1 tablet by ORAL route every 12 hours for 10 days; 20 tablet; Refills: 0, pm1 Product Selection Permitted Signatures: Dispatcher [employer] EDMS Shai Haines MD MD rn Smirch, Shelby, RN RN ss Marinas, Patrick, EULALIO BETA TESTER pm1 Nia Soto RN RN ll1
[2021-06-19] MEDS ORDERED: APIXABAN 5 MG TABLET ONE (11:59)
[2021-06-19 13:08] VITALS: BP 108/66; TEMP 97.9; O2SAT 97
== END 2021-06-19 12:42 | disposition home or self-care (01) ==
LOC: ER 07:40
DX: N39.0 Urinary tract infection, site not specified (principal); F15.10 Other stimulant abuse, uncomplicated; R11.0 Nausea; I10 Essential (primary) hypertension; F17.210 Nicotine dependence, cigarettes, uncomplicated; Z88.0 Allergy status to penicillin
CPT/HCPCS: 87088; 85025; 87086; 36415; 81025; 83690; 80053; 80307; 74177; Q9967; J7030; J2405; 81003; 81015; 87077; 87186; 96361; 96374; 96375; 99284

== ENCOUNTER 2021-09-29 23:51 | Emergency (ER) | payer OTHER ==
--- OUTSIDE RECORDS SUMMARY | 2021-09-29 23:57 | XMS REPORT | Continuity of Care Document ---
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 Do M emoria en 300 MG / 06-07 not exceed l Codeine 20:53: 4gm/day of Herm janeen Phosphate acetaminop 30 MG Oral hen. (Same Tablet as: [Tylenol Tylenol with with Codeine #3] Codeine # 3) chlorhexidi No Notes: David ankur ne 06-07 (Same As: l gluconate 18:00: Peridex) Herm janeen 1.2 MG/ML Mouthwash [Peridex] tramadol Yes 100 mg, Memori a hydrochlori -21 PO, Q6H, l de 50 MG 15:59: PRN Pain [place] nn Oral Tablet 00 Score 4-6, X 10 day, # 30 tab, 0 Refill(s) Phenergan Yes 25 mg, PO, Me moria 25 mg oral -21 Q6H, PRN l tablet 15:59: Nausea & Donn Vomiting, # 10 tab, 0 Refill(s) chlorhexidi [...] CDT ondansetron No Route: IV, Memoria (ANES) 20 Drug form: l 20:42: INJ, ONCE, Stop date: 06/06/17 15:42:00 CDT propofol No Route: IV, Mem oria (ANES) 06-06 Drug form: l 19:40: INJ, ONCE, Stop date: 06/06/17 14:40:00 CDT midazolam No Route: IV, Me moria (ANES) 06-06 Drug form: l 19:40: SOLN, ONCE, Stop [...] 10 mg 19:12: INJ, Start [place] n date: 06/06/17 14:12:00 CDT, Stop date: 06/06/17 15:12:00 CDT clindamycin No Route: IV, Memoria (ANES) 150 4-20 Drug form: l mg 18:50: INJ, Start [place] date: 06/06/17 13:50:00 CDT, Stop date: 06/06/17 14:50:00 CDT Lactated No Route: IV, Mem oria Ringers 4-20 Total l Injection 18:35: Volume: [place] nn IV (ANES) 00 1,000, 1000 mL Start date: 06/06/17 13:35:00 CDT, Stop date: 06/06/17 14:35:00 CDT albuterol No Notes: Memori a 90 mcg/inh 4-20 Albuterol l inhalation 04:24: 90 [place] aerosol 00 microgram/ inh 8gm HFA WASTE: Aerosol - Return to Pharmacy Same as: Lexi Cao Saline No Notes: Memoria Flush 0.9% 4-20 Same as: l 04:23: BD [place] 00 Posiflush Sterile Dextrose 5% No 1,000 mL, M emoria with 0.45% 4-20 Rate: 125 l NaCl IV 04:23: ml/hr, Kenner 1,000 mL 00 Infuse over: 8 hr, [...] ne 4-20 Same as l 04:23: Dilaudid [place] 00 Zofran No Notes: Memoria 4-20 (Same as: l 03:39: Zofran) Donn 00 MEDICATION WASTE Product Size: 4 mg Product Wasted: _0__ mg Dilaudid No Notes: Memoria 4-20 Same as l 03:39: Dilaudid [place] 00 Iohexol 2018-0 No 100 mL, Memoria 4-19 Route: l 23:49: IVP, Drug Form: SOLN, Dosing Weight 56.818, kg, ONCALL, STAT, Start date: 06/05/17 18:49:00 CDT, Duration: 1 doses or times, Dose = 2.2ml/kg, Max dose = 100ml -- "To be infused by Radiology Staff ONLY" Ondansetron 2017-0 No 4 mg, Memor ia 06-05 Route: [...] (Same as: l 22:22: BD Posiflush) albuterol 2017-0 Yes 2 puff, Memor ia 90 mcg/inh 4-11 INHALATION l inhalation 19:40: , Q4H, PRN H ermann aerosol 00 for wheezing, # 9 gm, 0 Refill(s) Acetaminoph 2014-02 No 650 mg, Mem oria en 0-16 Route: PO, l 23:23: Drug form: Donn 00 TAB, ONCE, Dosing Weight 50, kg, Priority: STAT, Start date: 12/02/14 18:23:00, Stop date: 12/02/14 18:23:00 tramadol 2014- Yes 25 mg = Memori a hydrochlori 2-08 0.5 tab, l de 50 MG 12:02: PO, Q6H, # Her jaramillo Oral Tablet 00 14 tab, 0 Refill(s) Morphine 0 No 2 mg, Memoria 2-08 Route: IM, l 08:59: Drug form: [place] 00 INJ, ONCE, Dosing Weight 63.636, kg, [...] Memoria 02-28 (Same As: l 15:00: Vitamin [place] 00 B1) tramadol 2013-02 Yes 100 mg = 2 Mem oria hydrochlori -12 tab, PO, l de 50 MG 14:34: Q6H, 0 [place] Oral Tablet 00 Refill(s) Ibuprofen 2013-02 Yes 200 mg = 1 Me moria 200 MG Oral 12 tab, PO, l Tablet 14:34: Q4H, See [place] 00 Nurse's Notes | pain scale 4-6, 0 Refill(s) Docusate 2013-02 No 100 mg = 1 Mem oria Sodium 100 -12 cap, PO, l MG Oral 14:34: BID, 0 [place] Capsule 00 Refill(s) Acetaminoph 2013-02 Yes 1 tab, PO, Memoria en 300 MG / -12 Q4H, See l Codeine 14:34: Nurse's Donn Phosphate Notes | 30 MG Oral pain scale Tablet 7-10, 0 Refill(s) Iron-150 2013-02 Yes 0 Memoria oral tablet 1-12 Refill(s) l 14:33: [place] 00 acetaminoph 2013-02 No Notes: Do M emoria en-codeine 02-28 not exceed l #3 13:48: 4gm/day of [place] acetaminop hen. (Same as: Tylenol with Codeine # 3) Hydrocodone 2013-02 No Notes: David ankur Bitartrate 02-28 (Same as: l 5 MG / 08:05: Vicoprofen [place] nn Ibuprofen ) 200 MG Oral Tablet Acetaminoph 2013-02 No Notes: Do M emoria en 02-28 not exceed l 00:00: 4 gm/day. Donn (Same as: Tylenol) Tramadol 2013-02 No Notes: Not Mem oria 02-28 to exceed l 00:00: 400mg/day. Donn (Same As: Ultram) docusate 2013-02 No Notes: Memoria sodium 02-27 (Same as: l 23:00: Colace) Donn 00 (Do Not Crush) Ativan 2013-02 No Notes: Memoria 02-27 (Same as: l 22:11: Ativan) Enoxaparin 2013-02 No Notes: Memor ia 02-27 (Same as: l 21:00: Lovenox) Ketorolac 2013-02 No 4 days Memor ia 02-27 l 20:45: [place] 00 Ibuprofen 2013-02 No Notes: Memori a 02-27 (Same as: l 20:43: Advil) Give with food. Dilaudid 2013-02 No Notes: Memoria 02-27 Same as: l 18:55: Dilaudid iodixanol 2013-02 No Special Memor ia 02-27 Instructio l 18:28: ns: Dose = Donn 00 2.2ml/kg, Max dose = 100ml -- "To be infused by Radiology Staff ONLY" Zofran 2013-02 No Notes: Memoria 02-27 (Same as: l 17:45: Zofran) [place] 00 Morphine 2013-02 No Notes: Memoria 02-27 (Same l 17:45: as:MORPhin Donn 00 e Sulfate) Saline 2013-02 No Notes: Memoria Flush 0.9% 02-27 (Same as: l 17:30: BD Donn 00 Posiflush) Immunizations Ordered Filled Immunization Date Status Comments Sourc e Immunization Name Name Rho (d) Immune 2018-06-27 Completed [facility] 00:[facility]00 [facility] Rho (d) Immune 2018-06-27 Completed [facility] 00:00:00 [facility] Rho (d) Immune 2018-06-27 Completed [facility] 00:00:00 [facility] Rho (d) Immune 2018-06-27 Completed [facility] 00:00:00 [facility] Rho (d) Immune 2018-06-27 Completed [facility] 00:00:00 [facility] Rho (d) Immune 2018-06-27 Completed [facility] 00:00:00 [facility] Rho (d) Immune 2018-06-27 Completed [facility] 00:00:00 [facility] Rho (d) Immune 2018-06-27 Completed [facility] 00:00:00 [facility] Rho (d) Immune 2018-06-27 Completed [facility] 00:00:00 [facility] Rho (d) Immune 2018-06-27 Completed [facility] 00:00:00 [facility] Rho (d) Immune 2018-06-27 Completed [facility] 00:00:00 [facility] Rho (d) Immune 2018-06-27 Completed [facility] 00:00:00 [facility] Rho (d) Immune 2018-06-27 Completed [facility] 00:00:00 [facility] Rho (d) Immune 2018-05-14 Completed [facility] 00:00:00 [facility] Rho (d) Immune 2018-05-14 Completed [facility] 00:00:00 [facility] Rho (d) Immune 2018-05-14 Completed [facility] 00:00:00 [facility] Rho (d) Immune 2018-05-14 Completed [facility] 00:00:00 [facility] Rho (d) Immune 2018-05-14 Completed [facility] 00:00:00 [facility] Rho (d) Immune 2018-05-14 Completed [facility] 00:00:00 [facility] Rho (d) Immune 2018-05-14 Completed [facility] 00[facility]00:00 [facility] Rho (d) Immune 2018-05-14 Completed [facility] 00:00:00 [facility] Rho (d) Immune 2018-05-14 Completed [facility] 00:00:00 [facility] Rho (d) Immune 2018-05-14 Completed [facility] 00:00:00 [facility] Rho (d) Immune 2018-05-14 Completed [facility] 00:00:00 [facility] Rho (d) Immune 2018-05-14 Completed [facility] 00:00:00 [facility] Rho (d) Immune 2018-05-14 Completed [facility] 00:00:00 [facility] Rho (d) Immune 2016-03-12 Completed [facility] 00:00:00 [facility] Rho (d) Immune 2016-03-12 Completed [facility] 00:00:00 [facility] Rho (d) Immune 2016-03-12 Completed [facility] 00:00:00 [facility] Rho (d) Immune 2016-03-12 Completed [facility] 00:00:00 [facility] Rho (d) Immune 2016-03-12 Completed [facility] 00:00:00 [facility] Rho (d) Immune 2016-03-12 Completed [facility] 00:00:00 [facility] Rho (d) Immune 2016-03-12 Completed [facility] 00:00:00 [facility] Rho (d) Immune 2016-03-12 Completed [facility] 00:00:00 [facility] Rho (d) Immune 2016-03-12 Completed [facility] 00:00:00 [facility] Rho (d) Immune 2016-03-12 Completed [facility] 00:00:00 [facility] Rho (d) Immune 2016-03-12 Completed [facility] 00:00:00 [facility] Rho (d) Immune 2016-03-12 Completed [facility] 00:00:00 [facility] Rho (d) Immune 2016-03-12 Completed [facility] 00:00:00 [facility] Rho (d) Immune 2015-06-18 Completed [facility] 00:00:00 [facility] Rho (d) Immune 2015-06-18 Completed [facility] 00:00:00 [facility] Rho (d) Immune 2015-06-18 Completed [facility] 00:00:00 [facility] Rho (d) Immune 2015-06-18 Completed [facility] 00:00:00 [facility] Rho (d) Immune 2015-06-18 Completed [facility] 00:00:00 [facility] Rho (d) Immune 2015-06-18 Completed [facility] 00:00:00 [facility] Rho (d) Immune 2015-06-18 Completed [facility] 00:00:00 [facility] Rho (d) Immune 2015-06-18 Completed [facility] 00:00:00 [facility] Rho (d) Immune 2015-06-18 Completed [facility] 00:00:00 [facility] Rho (d) Immune 2015-06-18 Completed [facility] 00:00:00 [facility] Rho (d) Immune 2015-06-18 Completed [facility] 00:00:00 [facility] Rho (d) Immune 2015-06-18 Completed [facility] 00:00:00 [facility] Rho (d) Immune 2015-06-18 Completed [facility] 00:00:00 [facility] Rho (d) Immune 2007-07-16 Completed [facility] 00:00:00 [facility] Rho (d) Immune 2007-07-16 Completed [facility] 00:00:00 [facility] Rho (d) Immune 2007-07-16 Completed [facility] 00:00:00 [facility] Rho (d) Immune 2007-07-16 Completed [facility] 00:00:00 [facility] Rho (d) Immune 2007-07-16 Completed [facility] 00:00:00 [facility] Rho (d) Immune 2007-07-16 Completed [facility] 00:00:00 [facility] Rho (d) Immune 2007-07-16 Completed [facility] 00:00:00 [facility] Rho (d) Immune 2007-07-16 Completed [facility] 00:00:00 [facility] Rho (d) Immune 2007-07-16 Completed [facility] 00:00:00 [facility] Rho (d) Immune 2007-07-16 Completed [facility] 00:00:00 [facility] Rho (d) Immune 2007-07-16 Completed [facility] 00:00:00 [facility] Rho (d) Immune 2007-07-16 Completed [facility] 00:00:00 [facility] Rho (d) Immune 2007-07-16 Completed [facility] 00:00:00 [facility] Influenza Virus 2007-05-05 Completed [facility] Vaccine 00:00:00 [facility] Influenza Virus 2007-05-05 Completed [facility] of Vaccine 00:00:00 [facility] Influenza Virus 2007-05-05 Completed [facility] of Vaccine 00:00:00 [facility] Influenza Virus 2007-05-05 Completed [facility]it y of Vaccine 00:00:00 [facility] Influenza Virus 2007-05-05 Completed [facility]it y of Vaccine 00:00:00 [facility] Influenza Virus 2007-05-05 Completed [facility]it y of Vaccine 00:00:00 [facility] Influenza Virus 2007-05-05 Completed [facility]it y of Vaccine 00:00:00 [facility] Influenza Virus 2007-05-05 Completed Universit y of Vaccine 00:00:00 [facility] Influenza Virus 2007-05-05 Completed [facility]it y of Vaccine 00:00:00 [facility] Influenza Virus 2007-05-05 Completed Universit y of Vaccine 00:00:00 [facility] Influenza Virus 2007-05-05 Completed [facility]it y of Vaccine 00:00:00 [facility] Influenza Virus 2007-05-05 Completed [facility] y of Vaccine 00:00:00 [facility] Influenza Virus 2007-05-05 Completed Universit y of Vaccine 00:00:00 [facility] Vital Signs Vital Name Observation Time Observation Value Comments Source Systolic blood 2020-02-04 16:22:00 123 mm[Hg] Univer sity of pressure [facility] Diastolic blood 2020-02-04 16:22:00 75 mm[Hg] Unive rsity of pressure [facility] Heart rate 2020-02-04 16:22:00 90 /min [facility] Body temperature 2020-02-04 16:22:00 36.5 [facility] 2020-02-04 16:22:00 16 /min [facility] Oxygen saturation in 2020-02-04 16:22:00 100 /min [facility] Arterial blood by [facility] Pulse oximetry [place] Body height 2020-02-01 05:20:00 160 cm [facility] Body weight 2020-02-01 05:20:00 79.379 kg [facility] BMI 2020-02-01 05:20:00 31.00 kg/m2 [facility] Systolic blood 2020-01-31 15:54:00 138 mm[Hg] Univer sity of pressure [facility] Diastolic blood 2020-01-31 15:54:00 79 mm[Hg] Unive rsity of pressure [facility] Heart rate 2020-01-31 15:54:00 95 /min [facility] Body temperature 2020-01-31 15:54:[address] [facility] Respiratory rate 2020-01-31 15:54:00 16 /min [facility] Body height 2020-01-31 15:54:00 160 cm [facility] Body weight 2020-01-31 15:54:00 79.379 kg [facility] BMI 2020-01-31 15:54:00 31.00 kg/m2 [facility] Oxygen saturation in 2020-01-31 15:54:00 100 /min [facility] of Arterial blood by [facility] dayana Pulse oximetry Branch Heart rate 2019-04-20 04:33:31 101 /min [facility] Systolic blood 2019-04-20 04:31:00 131 mm[Hg] Univer sity of pressure [facility] Diastolic blood 2019-04-20 04:31:00 98 mm[Hg] Unive rsity of pressure [facility] Body temperature 2019-04-20 04:31:00 37.22 Vicki Univ ers[facility] Respiratory rate 2019-04-20 04:31:00 18 /min Univ ersity of [facility] Body height 2019-04-20 04:31:00 160 cm [facility] Body weight 2019-04-20 04:31:00 56.7 kg [facility] BMI 2019-04-20 04:31:00 22.14 kg/m2 [facility] Oxygen saturation in 2019-04-20 04:31:00 99 /min [facility] of Arterial blood by [facility] Pulse oximetry Branch Systolic blood 2019-04-19 01:02:00 122 mm[Hg] Univer sity of pressure [facility] Diastolic blood 2019-04-19 01:02:00 79 mm[Hg] Unive rsity of pressure [facility] Heart rate 2019-04-19 01:02:00 107 /min [facility] Body temperature 2019-04-19 01:02:00 37.56 Vicki Univ ersity of [facility] Respiratory rate 2019-04-19 01:02:00 16 /min Univ ersity of [facility] Body height 2019-04-19 01:02:00 160 cm [facility] Body weight 2019-04-19 01:02:00 56.7 kg [facility] BMI 2019-04-19 01:02:00 22.14 kg/m2 [facility] Oxygen saturation in 2019-04-19 01:02:00 100 /min [facility] of Arterial blood by [facility] dayana Pulse oximetry [facility] Systolic blood 2019-03-10 00:49:00 124 mm[Hg] Univer sity of pressure [facility] Diastolic blood 2019-03-10 00:49:00 71 mm[Hg] Unive rsity of pressure [facility] Heart rate 2019-03-10 00:49:00 86 /min [facility] Respiratory rate 2019-03-10 00:49:00 14 /min Univ ers[facility] Oxygen saturation in 2019-03-10 00:49:00 98 /min [facility] Arterial blood by [facility] Pulse oximetry [facility] Body temperature 2019-03-09 22:06:00 36.83 Vicki Univ ers[facility] Body height 2019-03-09 22:06:00 160 cm [facility] Body weight 2019-03-09 22:06:00 54.432 kg [facility] BMI 2019-03-09 22:06:00 21.26 kg/m2 [facility] Systolic blood 2018-10-28 04:30:00 123 mm[Hg] Univer sity of pressure [facility] Diastolic blood 2018-10-28 04:30:00 76 mm[Hg] Unive rsity of pressure [facility] Heart rate 2018-10-28 04:30:00 93 /min [facility] Respiratory rate 2018-10-28 04:30:00 20 /min Univ ers[facility] Oxygen saturation in 2018-10-28 04:30:00 100 /min [facility] Arterial blood by [facility] Pulse oximetry [facility] Body temperature 2018-10-28 02:27:30 37 Vicki [facility] Body weight 2018-10-28 02:27:30 54.432 kg [facility] BMI 2018-10-28 02:27:30 21.26 kg/m2 [facility] Systolic blood 2018-10-12 00:00:00 117 mm[Hg] Univer sity of pressure [facility] Diastolic blood 2018-10-12 00:00:00 72 mm[Hg] Unive rsity of pressure [facility] Heart rate 2018-10-12 00:00:00 85 /min [facility] Respiratory rate 2018-10-12 00:00:00 18 /min [facility] Oxygen saturation in 2018-10-12 00:00:00 100 /min [facility] Arterial blood by [facility] Pulse oximetry [place] Body temperature 2018-10-11 23:00:00 37.06 Vicki [facility] Body weight 2018-10-11 23:00:00 58.968 kg [facility] BMI 2018-10-11 23:00:00 23.03 kg/m2 [facility] Height 2017-08-13 01:34:00 160.02 cm [facility] [place] BMI Calculated 2017-08-13 01:34:00 [facility] Donn Weight 2017-08-13 01:34:00 [facility] [place] Heart Rate 2017-08-13 01:34:00 [facility] Systolic (mm Hg) 2017-08-13 01:34:00 David rial Donn Diastolic (mm Hg) 2017-08-13 01:34:00 Mem orial [place] Temperature Oral (F) 2017-08-13 01:34:00 97.5 F [facility] [place] Respitory Rate 2017-08-13 01:34:00 [facility] [place] Respitory Rate 2017-08-11 06:22:00 Memori al Donn Systolic (mm Hg) 2017-08-11 06:22:00 David rial Donn Diastolic (mm Hg) 2017-08-11 06:22:00 Mem orial Donn Heart Rate 2017-08-11 06:22:00 [facility] [place] Temperature Oral (F) 2017-08-11 06:22:00 98.2 F [facility] [place] Systolic (mm Hg) 2017-08-11 04:20:00 David rial [place] Diastolic (mm Hg) 2017-08-11 04:20:00 Mem orial Donn Respitory Rate 2017-08-11 04:20:00 Memori al Donn Heart Rate 2017-08-11 04:20:00 [facility] [place] Respitory Rate 2017-08-11 02:21:00 Memori al Donn Systolic (mm Hg) 2017-08-11 02:21:00 David rial Donn Diastolic (mm Hg) 2017-08-11 02:21:00 Mem orial [place] Temperature Oral (F) 2017-08-11 02:21:00 98.4 F [facility] [place] Heart Rate 2017-08-11 02:21:00 [facility] Height 2017-08-11 00:50:00 160.02 cm [facility] BMI Calculated 2017-08-11 00:50:00 [facility] [place] Weight 2017-08-11 00:50:00 [facility] [place] Temperature Oral (F) 2017-08-11 00:50:00 98.9 F [facility] [place] Temperature Oral (F) 2017-06-08 16:18:00 98.5 F [facility] [place] Heart Rate 2017-06-08 16:18:00 [facility] [place] Respitory Rate 2017-06-08 16:18:00 [facility] [place] Systolic (mm Hg) 2017-06-08 16:18:00 David rial Donn Diastolic (mm Hg) 2017-06-08 16:18:00 Mem orial [place] Temperature Oral (F) 2017-06-08 12:29:00 98.5 F [facility] Systolic (mm Hg) 2017-06-08 12:29:00 David rial Donn Diastolic (mm Hg) 2017-06-08 12:29:00 Mem orial Donn Respitory Rate 2017-06-08 12:29:00 [facility] al Donn Heart Rate 2017-06-08 12:29:00 [facility] Systolic (mm Hg) 2017-06-08 10:47:00 David rial [place] Diastolic (mm Hg) 2017-06-08 10:47:00 Mem [facility] [place] Respitory Rate 2017-06-08 10:47:00 [facility] [place] Heart Rate 2017-06-08 10:47:00 [facility] Temperature Oral (F) 2017-06-07 12:18:00 97.9 F [facility] BMI Calculated 2017-06-05 21:47:00 [facility] Weight 2017-06-05 21:47:00 [facility] [place] Height 2017-06-05 21:47:00 160.02 cm [facility] [place] Weight 2017-05-28 18:37:00 [facility] BMI Calculated 2017-05-28 18:37:00 [facility] [place] Height 2017-05-28 18:37:00 160.02 cm [facility] Temperature Oral (F) 2017-05-28 18:37:00 98.0 F [facility] Respitory Rate 2017-05-28 18:37:00 [facility] [place] Heart Rate 2017-05-28 18:37:00 [facility] Systolic (mm Hg) 2017-05-28 18:37:00 Davdi rial [place] Diastolic (mm Hg) 2017-05-28 18:37:00 Mem orial Donn Systolic (mm Hg) 2015-06-14 01:22:00 David rial Donn Diastolic (mm Hg) 2015-06-14 01:22:00 [facility] [place] BMI Calculated 2015-06-14 00:51:00 [facility] Weight 2015-06-14 00:51:00 [facility] [place] Height 2015-06-14 00:51:00 160.02 cm [facility] [place] Heart Rate 2014-12-03 01:40:00 [facility] Respitory Rate 2014-12-03 01:40:00 [facility] [place] Systolic (mm Hg) 2014-12-03 01:40:00 David rial [place] Diastolic (mm Hg) 2014-12-03 01:40:00 [facility] [place] Temperature Oral (F) 2014-12-03 01:40:00 98 F [facility] [place] Temperature Oral (F) 2014-12-03 00:10:00 97.8 F [facility] Diastolic (mm Hg) 2014-12-03 00:10:00 [facility] [place] Systolic (mm Hg) 2014-12-03 00:10:00 David rial [place] Respitory Rate 2014-12-03 00:10:00 [facility] [place] Heart Rate 2014-12-03 00:10:00 [facility] Weight 2014-12-02 21:49:00 [facility] BMI Calculated 2014-12-02 21:49:00 [facility] [place] Respitory Rate 2014-12-02 21:49:00 [facility] Heart Rate 2014-12-02 21:49:00 [facility] [place] Temperature Oral (F) 2014-12-02 21:49:00 97.9 F [facility] Systolic (mm Hg) 2014-12-02 21:49:00 David [facility] Donn Diastolic (mm Hg) 2014-12-02 21:49:00 Mem o[facility] Height 2014-12-02 21:49:00 160.02 cm [facility] Heart Rate 2014-03-27 10:59:00 [facility] Respitory Rate 2014-03-27 10:59:00 [facility] Systolic (mm Hg) 2014-03-27 10:59:00 David rial [place] Diastolic (mm Hg) 2014-03-27 10:59:00 [facility] Systolic (mm Hg) 2014-03-27 09:18:00 David rial [place] Diastolic (mm Hg) 2014-03-27 09:18:00 [facility] Respitory Rate 2014-03-27 09:18:00 [facility] Heart Rate 2014-03-27 09:18:00 [facility] Temperature Oral (F) 2014-03-27 07:33:00 98.4 F [facility] Diastolic (mm Hg) 2014-03-27 07:33:00 [facility] Heart Rate 2014-03-27 07:33:00 [facility] Respitory Rate 2014-03-27 07:33:00 [facility] Systolic (mm Hg) 2014-03-27 07:33:00 David [facility] Weight 2014-03-27 07:33:00 [facility] Heart Rate 2013-12-29 14:13:00 [facility] Temperature Oral (F) 2013-12-29 14:13:00 97.0 F [facility] Diastolic (mm Hg) 2013-12-29 14:13:00 [facility] Systolic (mm Hg) 2013-12-29 14:13:00 David [facility] Respitory Rate 2013-12-29 14:13:00 [facility] Systolic (mm Hg) 2013-12-29 08:48:00 David [facility] Donn Diastolic (mm Hg) 2013-12-29 08:48:00 [facility] Respitory Rate 2013-12-29 08:48:00 [facility] Temperature Oral (F) 2013-12-29 08:48:00 96.5 F [facility] Heart Rate 2013-12-29 08:48:00 [facility] Heart Rate 2013-12-29 05:23:00 [facility] Systolic (mm Hg) 2013-12-29 05:23:00 David [facility] Respitory Rate 2013-12-29 05:23:00 Glen Shanksann Diastolic (mm Hg) 2013-12-29 05:23:00 Mem bertoal Donn Temperature Oral (F) 2013-12-29 05:23:00 97.8 F [facility] Weight 2013-12-29 00:50:00 [facility] BMI Calculated 2013-12-29 00:50:00 [facility] Height 2013-12-29 00:50:00 160.02 cm [facility] BMI Calculated 2013-12-28 17:31:00 [facility] Height 2013-12-28 17:31:00 160.02 cm [facility] Weight 2013-12-28 17:31:00 [facility] Procedures Procedure Date / Time Performed Performing Clinician Sour e CONSENT/REFUSAL FOR 2020-10-05 04:21:55 Doctor Unassigned, No [facility] [place] [facility] TREATMENT XR CHEST 2 VW 2020-07-04 13:52:12 Michelle Adorno [facility] Branch EXTERNAL PROVIDER 2020-03-10 06:01:00 Doctor Unassigned, No [facility] ersity [facility] RECORDS Name Medical Branch COVID-19 (ID NOW 2020-01-31 18:05:00 Debbie Logan [facility] RAPID TESTING) Medical Branch NOTICE OF PRIVACY 2019-04-19 00:54:49 Doctor Unassigned, No [facility] CONSENT/REFUSAL FOR 2019-04-19 00:54:31 Doctor Unassigned, No [facility] [place] [facility] AND Name Medical [facility] TREATMENT CT 2019-03-09 23:34:17 Karli Erwin [facility] MAXILLOFACIAL/MANDIBL Medical Br anch E WO CONTRAST POCT TEST 2019-03-09 22:55:00 Karli Erwin [facility] NOTICE OF PRIVACY 2019-03-09 21:55:33 Doctor Unassigned, No [facility] CONSENT/REFUSAL FOR 2019-03-09 21:55:18 Doctor Unassigned, No [facility] [place] DIAGNOS[facility] AND Name Medical [facility] TREATMENT XR FOOT 3+ VW LEFT 2018-10-28 03:49:31 Lexx Jiménez [facility] XR TIBIA FIBULA 2 VW 2018-10-28 03:49:31 [facility] XR ANKLE 3+ VW LEFT 2018-10-11 23:42:31 [facility] XR FOOT 3+ VW LEFT 2018-10-11 23:42:[address] [facility] XR KNEE 3 VW LEFT 2018-10-11 23:42:31 Christiano Rutherford [facility] XR TIBIA FIBULA 2 VW 2018-10-11 23:42:31 Christiano [facility]ford [facility] Start End Encounter Admission Attending Care Care Encounter Source Date/Time Date/Time Type Type Clinicians Facility Department ID 2020-12-18 Emergency [facility] [id number] Univers 16:35:17 [facility] 2020-12-14 Emergency [facility] [id number] Univers 12:08:08 [facility] of [facility] 2020-12-14 Emergency [facility] [id number] Univers 11:52:02 [facility] 2020-10-04 2020-10-04 Orders Doctor CHEN [id number] Univers 00:00:00 00:00:00 Only Unassigned, JOHN [id number] ity of [place] [facility] [id number] Alejandro as [id number] [facility] 009 Branch 2020-07-04 2020-07-04 [facility] [id number] Univers 08:48:31 23:59:00 Encounter Michelle Sanders Dwaine [facility] [id number] [id number] [id number] [facility] 807 Branch 2020-03-10 2020-03-10 Orders Doctor CHEN [id number] Univers 00:00:00 00:00:00 Only Unassigned, JOHN [id number] ity of [place] [facility] [id number] Alejandro as [id number] [facility] 009 Branch 2020-01-31 2020-02-04 [facility] [id number] Univers 10:55:00 11:25:00 Encounter [facility] [id number] [place] [id number] [facility] 005 Branch 2020-01-31 2020-01-31 Outpatient R [facility] [id number] Univers 13:00:00 13:00:[id number] [facility] 2020-01-31 2020-01-31 [facility] Calos, [facility] [id number] Univers 09:12:53 10:54:00 Encounter [facility] [id number] [id number] [id number] [facility] 809 [place] 2020-01-31 2020-01-31 Office Surgery, Td Oral TDCJ 1.2.840. [id number] Univers 09:10:59 09:40:59 [facility] [id number] [place] [id number] [facility] 214 Branch 2020-01-31 2020-01-31 Prep For APRIL Freeman [id number] Univers 00:00:00 00:00:00 Surgery Jean Marietiffanie CONNORY 350.1.13.10 it y of HOSPITAL 4.2.7.2.686 Alejandro as [id number] [facility] 039 Branch 2019-05-26 2019-05-26 Outpatient R COLE [facility] [id number] Univers 14:30:00 14:30:[id number] [facility] 2019-05-26 2019-05-26 Outpatient Douglas GALVAN [facility] [id number] Univers 14:30:00 14:30:[address] [facility] 2019-04-19 2019-04-19 [facility] [id number] Univers 22:28:20 23:13:00 Brooklynn Lee 350.1.13.10 i ty of [place] 4.2.7.2.686 [facility] [id number] [address] 2019-04-18 2019-04-18 Emergency Raymundo, [facility] [id number] Univers 19:00:09 20:10:00 Hiro Rosa 350.1.13.10 i ty of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 Reference Range Interpretation Comments UA Blood (test code = Negative (06/05/17 6:45 UA Blood) PM) [facility] AND [id number] 23:45:00 Test Item Value Reference Range Interpretation Comments UA Urobilinogen (test code = UA 0.2 0.1-1.0 Urobilinogen) [facility] AND [id number] 23:45:00 Test Item Value Reference Range Interpretation Comments UA Bili (test code = Negative *NA*(06/05/17 UA Bili) 6:45 PM) [facility] AND [id number] 23:45:00 Test Item Value Reference Range Interpretation Comments UA Glucose (test code Negative (06/05/17 6:45 = UA Glucose) PM) [facility] AND [id number] 23:45:00 Test Item Value Reference Range Interpretation Comments UA Ketones (test code = Trace *ABN*(06/05/17 UA Ketones) 6:45 PM) [facility] [id number] 23:45:00 Test Item Value Reference Range Interpretation Comments UA Spec Grav (test code *NA*(06/05/17 6:45 PM) = UA Spec Grav) [facility] AND [id number] 23:45:00 Test Item Value Reference Range Interpretation Comments UA Turbidity (test code = Clear (06/05/17 6:45 UA Turbidity) PM) [facility] AND [id number] 23:45:00 Test Item Value Reference Range Interpretation Comments UA Color (test code = Yellow *NA*(06/05/17 UA Color) 6:45 PM) [facility] AND [id number] 23:45:00 Test Item Value Reference Range Interpretation Comments UA Protein (test code Negative (06/05/17 6:45 = UA Protein) PM) [facility] AND [id number] 23:45:00 Test Item Value Reference Range Interpretation Comments UA pH (test code = UA pH) 6.0 1 5.0-8.0 [facility] AND [id number] 23:45:00 Test Item Value Reference Range Interpretation Comments UA RBC (test None Seen See_Comment [Automated mes nestor] code = UA RBC) (06/05/17 6:45 The system w hich PM) generated this result transmitted ref erence range: <=2. The reference range was not used to int erpret this result as normal/abnormal . [facility] AND [id number] 23:45:00 Test Item Value Reference Range Interpretation Comments UA Sq Epi (test code = UA Sq Occasional /LPF Epi) [facility] AND [id number] 23:45:00 Test Item Value Reference Range Interpretation Comments UA Bacteria (test code = UA Many /HPF Bacteria) [facility] AND [id number] 23:45:00 Test Item Value Reference Range Interpretation Comments UA WBC (test code = UA WBC) 3-5 /HPF [facility]wxjizvPWMUTXSPVF7410-87-84 22:51:00 Test Item Value Reference Range Interpretation Comments CDC HIV 4th GEN (test Negative *NA*(06/05/17 code = CDC HIV 4th 5:51 PM) GEN) [facility] [employer] [id number] 22:42:00 Test Item Value Reference Range Interpretation Comments Antibody Scrn (test Negative (06/05/17 5:42 code = Antibody Scrn) PM) [facility] [employer] [id number] 22:42:00 Test Item Value Reference Range Interpretation Comments ABO/Rh (test code = ABO/Rh) A NEG [facility] [employer] [id number] 22:42:00 Test Item Value Reference Range Interpretation Comments Lactic Acid Lvl (test code = Lactic 2.7 0.5-2.2 Acid Lvl) [facility] [employer] [id number] 22:42:00 Test Item Value Reference Range Interpretation Comments eGFR (test code = eGFR) 72 [facility] [employer] [id number] 22:42:00 Test Item Value Reference Range Interpretation Comments CO2 (test code = CO2) 22 24-32 [facility] [employer] [id number] 22:42:00 Test Item Value Reference Range Interpretation Comments Calcium Lvl (test code = Calcium Lvl) 8.6 8.5-10.5 [facility] [employer] [id number] 22:42:00 Test Item Value Reference Range Interpretation Comments AGAP (test code = AGAP) 17.2 10.0-20.0 [facility] [employer] [id number] 22:42:00 Test Item Value Reference Range Interpretation Comments Creatinine Lvl (test code = Creatinine 1.04 0.50-1.40 Lvl) [facility] [employer] [id number] 22:42:00 Test Item Value Reference Range Interpretation Comments Sodium Lvl (test code = Sodium Lvl) 138 135-145 [facility] [employer] [id number] 22:42:00 Test Item Value Reference Range Interpretation Comments Chloride Lvl (test code = Chloride Lvl) 102 95-109 [facility] [employer] [id number] 22:42:00 Test Item Value Reference Range Interpretation Comments Potassium Lvl (test code = Potassium 3.2 3.5-5.1 Lvl) [facility] [employer] [id number] 22:42:00 Test Item Value Reference Range Interpretation Comments BUN (test code = BUN) 13 7-22 [facility]2018-04-19 22:42:00 Test Item Value Reference Range Interpretation Comments Glucose Lvl (test code = Glucose Lvl) 117 70-99 [facility]FdsbntxGQIMUYGGOFYBJ5108-40-79 22:42:00 Test Item Value Reference Range Interpretation Comments S Preg (test code = S Negative *NA*(06/05/17 Preg) 5:42 PM) [facility] CenterIodflquDRMICPZRTU2087-28-42 22:42:00 Test Item Value Reference Range Interpretation Comments Max Amplitude Rapid (test code = Max 58 mm 52-71 Amplitude Rapid) [facility] CenterFmcoyibMJRSZGTXIY4689-75-37 22:42:00 Test Item Value Reference Range Interpretation Comments G-value Rapid (test code = G-value 6.8 5.0-11.6 Rapid) [facility] CenterVvzdtxzCJHQABRSAE9484-96-22 22:42:00 Test Item Value Reference Range Interpretation Comments Estimated % Lysis Rapid 2.5 See_Comment [Au tomated message] The (test code = Estimated syste m which generated % Lysis Rapid) this result t ransmitted reference range : <=7.5. The reference r didier was not used to int erpret this result as normal/abnormal . [facility] CenterGlqiwhxMTBBNHCBHW8794-66-34 22:42:00 Test Item Value Reference Range Interpretation Comments R-time Rapid (test code = R-time 0.7 min 0.4-0.7 Rapid) [facility] CenterKvabwfhDROHXJDRER0625-14-74 22:42:00 Test Item Value Reference Range Interpretation Comments Angle Rapid (test code = Angle 72 degrees 64-80 Rapid) [facility] CenterLcybwedXFYPCOMWBI1084-04-20 22:42:00 Test Item Value Reference Range Interpretation Comments K-time Rapid (test code = K-time 1.9 min 0.6-2.3 Rapid) [facility] CenterXihxoqsFWNUGRNSMP6793-21-36 22:42:00 Test Item Value Reference Range Interpretation Comments Split Point Rapid (test code = Split 0.6 min Point Rapid) [facility] CenterAymcmdlTVCDZJDJUJ9476-78-60 22:42:00 Test Item Value Reference Range Interpretation Comments ACT (TEG) Rapid (test code = ACT (TEG) 113 s 86-118 Rapid) [facility] CenterClcybimYGOXLPSGFI3656-52-90 22:42:00 Test Item Value Reference Range Interpretation Comments RDW (test code = RDW) 15.8 11.5-14.5 [facility] CenterNhbjhgvGIYIQQITGS8949-44-62 22:42:00 Test Item Value Reference Range Interpretation Comments MCHC (test code = MCHC) 33.2 32.0-36.0 [facility] CenterWfhnlfeIPVIXFZTAK9769-28-96 22:42:00 Test Item Value Reference Range Interpretation Comments MPV (test code = MPV) 6.9 7.4-10.4 [facility] CenterXatxnpnSTUEIPEBZO2217-91-21 22:42:00 Test Item Value Reference Range Interpretation Comments Platelet (test code = Platelet) 165 133-450 [facility] CenterYpuutgsSXIADYQIIY9116-01-60 22:42:00 Test Item Value Reference Range Interpretation Comments MCH (test code = MCH) 29.1 pg 27.0-31.0 [facility] CenterNwtbchaHIMJZAARXP0261-35-51 22:42:00 Test Item Value Reference Range Interpretation Comments MCV (test code = MCV) 87.7 80.0-98.0 [facility] CenterTpyckptIEOENVYPMN9458-92-58 22:42:00 Test Item Value Reference Range Interpretation Comments RBC (test code = RBC) 4.64 4.20-5.40 [facility] CenterPzmbzfrQGFSLAWSLO8447-16-41 22:42:00 Test Item Value Reference Range Interpretation Comments Hct (test code = Hct) 40.7 36.0-48.0 [facility] CenterDaeagdbVVAYMSZOCX7173-66-42 22:42:00 Test Item Value Reference Range Interpretation Comments WBC (test code = WBC) 13.2 3.7-10.4 [facility] CenterJwrnizkHDVHBQUFIC1902-55-01 22:42:00 Test Item Value Reference Range Interpretation Comments Hgb (test code = Hgb) 13.5 12.0-16.0 [facility] CenterSshwiocSPLUVLBOLF6076-62-86 22:42:00 Test Item Value Reference Range Interpretation Comments Segs (test code = Segs) 82.6 45.0-75.0 [facility] CenterExdlzyfTRONJVWFAH9235-83-00 22:42:00 Test Item Value Reference Range Interpretation Comments Lymphocytes (test code = Lymphocytes) 11.8 20.0-40.0 [facility] CenterFuonxxtHNFKDZZCRJ9533-76-75 22:42:00 Test Item Value Reference Range Interpretation Comments Lymphocytes # (test code = Lymphocytes 1.6 1.0-5.5 #) [facility] CenterLecmxglSYSNUSZRCD3263-24-83 22:42:00 Test Item Value Reference Range Interpretation Comments Basophils (test code = 0.2 See_Comment [Aut omated message] The Basophils) system which ge nerated this result tra nsmitted reference range : <=1.0. The reference r didier was not used to int erpret this result as normal/abnormal . [facility] CenterCpddideDWJUDODSFO4978-40-21 22:42:00 Test Item Value Reference Range Interpretation Comments Segs-Bands # (test code = Segs-Bands #) 10.9 1.5-8.1 [facility] CenterFjchrtyGRYWEFWJAN4142-48-57 22:42:00 Test Item Value Reference Range Interpretation Comments Eosinophils (test code = 0.4 See_Comment [A utomated message] The Eosinophils) system which ge nerated this result tra nsmitted reference range : <=4.0. The reference r didier was not used to int erpret this result as normal/abnormal . [facility] CenterMipndasXFCARAAQBU6904-49-98 22:42:00 Test Item Value Reference Range Interpretation Comments Monocytes (test code = Monocytes) 5.0 2.0-12.0 [facility] CenterSdlbyahLSTSXQGDIQ4253-28-88 22:42:00 Test Item Value Reference Range Interpretation Comments Eosinophils # (test code 0.1 See_Comment [A utomated message] The = Eosinophils #) system [facility] h generated this result tra nsmitted reference range : <=0.5. The reference r didier was not used to int erpret this result as normal/abnormal . [facility] CenterTxxykleQCMKALYNRG4826-64-59 22:42:00 Test Item Value Reference Range Interpretation Comments Monocytes # (test code 0.7 See_Comment [Aut omated message] The = Monocytes #) system which generated this result tra nsmitted reference range : <=0.8. The reference r didier was not used to int erpret this result as normal/abnormal . [facility] AND [id number] 00:01:00 Test Item Value Reference Range Interpretation Comments UA Bacteria (test code = UA Occasional /HPF Bacteria) [facility] AND [id number] 00:01:00 Test Item Value Reference Range Interpretation Comments UA RBC (test None Seen See_Comment [Automated mes nestor] code = UA RBC) (12/02/14 7:01 The system which PM) generated this result transmitted ref erence range: <=2. The reference range was not used to int erpret this result as normal/abnormal . [facility] AND [id number] 00:01:00 Test Item Value Reference Range Interpretation Comments UA Sq Epi (test code = UA Sq Epi) Few /LPF [facility] [id number] 00:01:00 Test Item Value Reference Range Interpretation Comments UA WBC (test code = UA WBC) 0-2 /HPF [facility] [id number] 00:01:00 Test Item Value Reference Range Interpretation Comments UA Mucus (test code = UA Mucus) Few /LPF [facility] AND [id number] 00:01:00 Test Item Value Reference Range Interpretation Comments UA Blood (test code = Negative (12/02/14 7:01 UA Blood) PM) [facility] AND [id number] 00:01:00 Test Item Value Reference Range Interpretation Comments UA Bili (test code = Negative *NA*(12/02/14 UA Bili) 7:01 PM) [facility] AND [id number] 00:01:00 Test Item Value Reference Range Interpretation Comments UA pH (test code = UA pH) 6.0 1 5.0-8.0 [facility] AND [id number] 00:01:00 Test Item Value Reference Range Interpretation Comments UA Turbidity (test code = Clear (12/02/14 7:01 UA Turbidity) PM) [facility] AND [id number] 00:01:00 Test Item Value Reference Range Interpretation Comments UA Color (test code = Yellow *NA*(12/02/14 UA Color) 7:01 PM) [facility] AND [id number] 00:01:00 Test Item Value Reference Range Interpretation Comments UA Spec Grav (test code = UA Spec 1.020 1 Grav) [facility] AND [id number] 00:01:00 Test Item Value Reference Range Interpretation Comments UA Ketones (test code = UA Negative mg/dL Ketones) [facility] AND [id number] 00:01:00 Test Item Value Reference Range Interpretation Comments UA Glucose (test code = UA Negative mg/dL Glucose) [facility] [id number] 00:01:00 Test Item Value Reference Range Interpretation Comments UA Protein (test code = UA Negative mg/dL Protein) [facility] [id number] 00:01:00 Test Item Value Reference Range Interpretation Comments UA Leuk Est (test Negative (12/02/14 7:01 code = UA Leuk Est) PM) [facility] [id number] 00:01:00 Test Item Value Reference Range Interpretation Comments UA Nitrite (test code Negative (12/02/14 7:01 = UA Nitrite) PM) [facility] [id number] 00:01:00 Test Item Value Reference Range Interpretation Comments UA Urobilinogen (test code = UA 0.2 0.1-1.0 Urobilinogen) [facility] [id number] 00:01:00 Test Item Value Reference Range Interpretation Comments Micro? (test code = Not Indicated Micro?) *NA*(12/02/14 7:01 PM) [facility] [id number] 00:01:00 Test Item Value Reference Range Interpretation Comments U Preg (test code = U Positive *ABN*(12/02/14 Preg) 7:01 PM) [facility] [id number] 20:37:28 Test Item Value Reference Range Interpretation Comments UA Glucose (test code = UA Negative mg/dL Glucose) [facility] [id number] 20:37:28 Test Item Value Reference Range Interpretation Comments UA Protein (test code = UA Negative mg/dL Protein) [facility] [id number] 20:37:28 Test Item Value Reference Range Interpretation Comments UA Blood (test code = Negative (12/28/13 2:37 UA Blood) PM) [facility] [id number] 20:37:28 Test Item Value Reference Range Interpretation Comments UA Bili (test code = Negative *NA*(12/28/13 UA Bili) 2:37 PM) [facility] [id number] 20:37:28 Test Item Value Reference Range Interpretation Comments UA Ketones (test code = UA Negative mg/dL Ketones) [facility] [id number] 20:37:28 Test Item Value Reference Range Interpretation Comments UA Nitrite (test code Negative (12/28/13 2:37 = UA Nitrite) PM) [facility] AND [id number] 20:37:28 Test Item Value Reference Range Interpretation Comments UA Leuk Est (test Negative (12/28/13 2:37 code = UA Leuk Est) PM) [facility] AND [id number] 20:37:28 Test Item Value Reference Range Interpretation Comments UA Urobilinogen (test code = UA 0.2 0.1-1.0 Urobilinogen) [facility] AND [id number] 20:37:28 Test Item Value Reference Range Interpretation Comments UA pH (test code = UA pH) 6.0 1 5.0-8.0 [facility] AND [id number] 20:37:28 Test Item Value Reference Range Interpretation Comments UA Spec Grav (test code = UA Spec 1.015 1 Grav) [facility] AND [id number] 20:37:28 Test Item Value Reference Range Interpretation Comments UA Color (test code = Yellow *NA*(12/28/13 UA Color) 2:37 PM) [facility] AND [id number] 20:37:28 Test Item Value Reference Range Interpretation Comments UA Turbidity (test code = Clear (12/28/13 2:37 UA Turbidity) PM) [facility] AND [id number] 20:37:28 Test Item Value Reference Range Interpretation Comments UA RBC (test None Seen See_Comment [Automated mes nestor] code = UA RBC) (12/28/13 2:37 The system which PM) generated this result transmitted ref erence range: <=2. The reference range was not used to int erpret this result as normal/abnormal . [facility] AND [id number] 20:37:28 Test Item Value Reference Range Interpretation Comments UA Bacteria (test code = UA Few /HPF Bacteria) [facility] AND [id number] 20:37:28 Test Item Value Reference Range Interpretation Comments UA Mucus (test code = UA Mucus) Rare /LPF [facility] AND [id number] 20:37:28 Test Item Value Reference Range Interpretation Comments UA Sq Epi (test code = UA Sq Epi) Few /LPF [facility] AND [id number] 20:37:28 Test Item Value Reference Range Interpretation Comments UA WBC (test code = UA WBC) 0-2 /HPF [facility] [id number] 17:40:00 Test Item Value Reference Range Interpretation Comments ABO/Rh (test code = ABO/Rh) A NEG [facility] vzaarManomasa [facility] [id number] 17:40:00 Test Item Value Reference Range Interpretation Comments Antibody Scrn (test Positive 1(12/28/13 code = Antibody Scrn) 11:40 AM) [facility] [id number] 17:40:00 Test Item Value Reference Range Interpretation [...] and concur with the resident's interpretation. CPT: 81030-JL [facility] [employer] [facility] [id number] 17:40:00 Test Item Value Reference Range Interpretation Comments AB Int (test code = AB Int) Anti-Le(a) [facility] [employer] [id number] 17:39:00 Test Item Value Reference Range Interpretation Comments Lactic Acid Lvl (test code = Lactic 1.5 0.5-2.2 Acid Lvl) [facility] [employer] [id number] 17:39:00 Test Item Value Reference Range Interpretation Comments eGFR (test code = eGFR) 78 [facility] [id number] 17:39:00 Test Item Value Reference Range Interpretation Comments CO2 (test code = CO2) 27 24-32 [facility] [employer] [id number] 17:39:00 Test Item Value Reference Range Interpretation Comments Calcium Lvl (test code = Calcium Lvl) 7.7 8.5-10.5 [facility] [employer] [id number] 17:39:00 Test Item Value Reference Range Interpretation Comments Sodium Lvl (test code = Sodium Lvl) 145 135-145 [facility]2014-11-11 17:39:00 Test Item Value Reference Range Interpretation Comments Creatinine Lvl (test code = Creatinine 1.0 0.5-1.4 Lvl) [facility]2014-11-11 17:39:00 Test Item Value Reference Range Interpretation Comments Chloride Lvl (test code = Chloride Lvl) 108 95-109 [facility]2014-11-11 17:39:00 Test Item Value Reference Range Interpretation Comments Potassium Lvl (test code = Potassium 3.4 3.5-5.1 Lvl) [facility]2014-11-11 17:39:00 Test Item Value Reference Range Interpretation Comments BUN (test code = BUN) 12 7-22 [facility]2014-11-11 17:39:00 Test Item Value Reference Range Interpretation Comments Glucose Lvl (test code = Glucose Lvl) 76 70-99 [facility]2014-11-11 17:39:00 Test Item Value Reference Range Interpretation Comments AGAP (test code = AGAP) 13.4 10.0-20.0 [facility] CenterHculcupXUVMDDKXNR5904-29-12 17:39:00 Test Item Value Reference Range Interpretation Comments Max Amp (test code = Max Amp) 47 mm 52-71 [facility] CenterIfkdcttCRCTQQKOFT2617-75-74 17:39:00 Test Item Value Reference Range Interpretation Comments G-value (test code = G-value) 4.4 5.0-11.6 [facility] CenterRdmtkdxWHXDGXSJIL9904-69-21 17:39:00 Test Item Value Reference Range Interpretation Comments Estimated % Lysis (test 1.4 See_Comment [Au tomated message] The code = Estimated % system wh ich generated Lysis) this result tra nsmitted reference range : <=7.5. The reference r didier was not used to int erpret this result as normal/abnormal . [facility] [id number] 17:39:00 Test Item Value Reference Range Interpretation Comments Angle (test code = Angle) 52 degrees 64-80 [facility] CenterAtbgdguILTQREGPHZ7698-01-40 17:39:00 Test Item Value Reference Range Interpretation Comments K-time (test code = K-time) 3.5 min 0.6-2.3 [facility] CenterKkoovesARDTJWTLCJ9916-60-82 17:39:00 Test Item Value Reference Range Interpretation Comments R-time (test code = R-time) 1.0 min 0.4-0.7 [facility] CenterQlphvxoPXJAELOQRP8497-23-75 17:39:00 Test Item Value Reference Range Interpretation Comments Split Point (test code = Split Point) 0.7 min [facility] CenterDouglrdHJBXIVHUJJ2248-26-08 17:39:00 Test Item Value Reference Range Interpretation Comments ACT (TEG) (test code = ACT (TEG)) 144 s 86-118 [facility] CenterMihvrgbECTTRACOSO3198-75-01 17:39:00 Test Item Value Reference Range Interpretation Comments Rapid TEG Sample Type Citrated Whole Blood (test code = Rapid TEG Sample Type) [facility] C[id number] 17:39:00 Test Item Value Reference Range Interpretation Comments Hct (test code = Hct) 45.2 36.0-48.0 [facility] CenterIambpfsLBRXOLQCHB4056-05-65 17:39:00 Test Item Value Reference Range Interpretation Comments RBC (test code = RBC) 4.83 4.20-5.40 [facility] CenterIvveqjuZXAFGHQIGU7750-88-06 17:39:00 Test Item Value Reference Range Interpretation Comments Hgb (test code = Hgb) 15.3 12.0-16.0 [facility] CenterIbtgxwhXZOSECNGQY4296-24-13 17:39:00 Test Item Value Reference Range Interpretation Comments MCV (test code = MCV) 93.7 80.0-98.0 [facility] CenterMocteovOWBHOIJDRJ2370-66-55 17:39:00 Test Item Value Reference Range Interpretation Comments WBC (test code = WBC) 10.2 3.7-10.4 [facility] CenterZojrxpjCBOFXCUKKG5325-20-32 17:39:00 Test Item Value Reference Range Interpretation Comments MPV (test code = MPV) 7.4 7.4-10.4 [facility] CenterRfwusgtBAGIJVZDBV7579-83-15 17:39:00 Test Item Value Reference Range Interpretation Comments Platelet (test code = Platelet) 164 133-450 [facility] CenterTygwufgWNKYAWQVUF1238-30-70 17:39:00 Test Item Value Reference Range Interpretation Comments RDW (test code = RDW) 13.1 11.5-14.5 [facility] CenterTtplzciQEJQDZQQMQ1382-03-92 17:39:00 Test Item Value Reference Range Interpretation Comments MCHC (test code = MCHC) 33.7 32.0-36.0 [facility] CenterMsfslpxLCJRGDYONP7877-87-33 17:39:00 Test Item Value Reference Range Interpretation Comments MCH (test code = MCH) 31.6 pg 27.0-31.0 [facility] CenterDnhamsgILYZPUVDRQ7539-66-93 17:39:00 Test Item Value Reference Range Interpretation Comments Segs-Bands # (test code = Segs-Bands #) 7.7 1.5-8.1 [facility] CenterOwpxvxjKKNAYGFPQK6749-69-08 17:39:00 Test Item Value Reference Range Interpretation Comments Basophils (test code = 0.0 See_Comment [Aut omated message] The Basophils) system which ge nerated this result tra nsmitted reference range : <=1.0. The reference r didier was not used to int erpret this result as normal/abnormal . [facility] CenterFxslfmfTDVTLMQFEZ4384-66-30 17:39:00 Test Item Value Reference Range Interpretation Comments Eosinophils (test code = 1.3 See_Comment [A utomated message] The Eosinophils) system which ge nerated this result tra nsmitted reference range : <=4.0. The reference r didier was not used to int erpret this result as normal/abnormal . [facility] CenterRpbqvcnIAWGWVQSWZ4567-49-33 17:39:00 Test Item Value Reference Range Interpretation Comments Eosinophils # (test code 0.1 See_Comment [A utomated message] The = Eosinophils #) system wh h generated this result tra nsmitted reference range : <=0.5. The reference r didier was not used to int erpret this result as normal/abnormal . [facility] CenterVbvwwldUPBALRGRMO8955-55-67 17:39:00 Test Item Value Reference Range Interpretation Comments Monocytes # (test code 0.6 See_Comment [Aut omated message] The = Monocytes #) system which generated this result tra nsmitted reference range : <=0.8. The reference r didier was not used to int erpret this result as normal/abnormal . [facility] CenterYzypiwbDBPWFIEMUB3610-21-94 17:39:00 Test Item Value Reference Range Interpretation Comments Lymphocytes # (test code = Lymphocytes 1.8 1.0-5.5 #) [facility] CenterQtkkrcjQNEBPUTLQF3899-39-71 17:39:00 Test Item Value Reference Range Interpretation Comments Basophils # (test code 0.0 See_Comment [Aut omated message] The = Basophils #) system which generated this result tra nsmitted reference range : <=0.2. The reference r didier was not used to int erpret this result as normal/abnormal . [facility] CenterYblkuszCCSYWUPXJG4174-38-57 17:39:00 Test Item Value Reference Range Interpretation Comments Segs (test code = Segs) 75.1 45.0-75.0 [facility] CenterPvglezdUIIHPLPRYS0445-04-36 17:39:00 Test Item Value Reference Range Interpretation Comments Plt Morph (test code = Normal (12/28/13 11:39 Plt Morph) AM) [facility] CenterXcjgpkfFIPHGWJLVO0601-00-12 17:39:00 Test Item Value Reference Range Interpretation Comments Monocytes (test code = Monocytes) 6.1 2.0-12.0 [facility] CenterVnwgnggLNQOKYAELL3745-75-59 17:39:00 Test Item Value Reference Range Interpretation Comments Lymphocytes (test code = Lymphocytes) 17.5 20.0-40.0 [facility] CenterScjnlexPJNVZPWBJJ4798-69-14 17:39:00 Test Item Value Reference Range Interpretation Comments RBC Morph (test code = Normal (12/28/13 11:39 RBC Morph) AM) [place] [id number] 17:39:00 Test Item Value Reference Range Interpretation Comments Etoh (%) (test code = Etoh (%)) 0.097 [place] [id number] 17:39:00 Test Item Value Reference Range Interpretation Comments Ethanol Lvl (test code = Ethanol Lvl) 97 [facility]2014-11-11 17:36:00 Test Item Value Reference Range Interpretation Comments U Opiate Scr (test Negative *NA*(12/28/13 code = U Opiate Scr) 11:36 AM) [facility] [id number] 17:36:00 Test Item Value Reference Range Interpretation Comments U Cannab Scr (test Positive *ABN*(12/28/13 code = U Cannab Scr) 11:36 AM) [facility]2014-11-11 17:36:00 Test Item Value Reference Range Interpretation Comments U Cocaine Scr (test Negative *NA*(12/28/13 code = U Cocaine Scr) 11:36 AM) [facility] [id number] 17:36:00 Test Item Value Reference Range Interpretation Comments U Benzodia Scr (test Positive code = U Benzodia Scr) *ABN*(12/28/13 11:36 AM) [facility] [id number] 17:36:00 Test Item Value Reference Range Interpretation Comments U Phencyc Scr (test Negative *NA*(12/28/13 code = U Phencyc Scr) 11:36 AM) [facility] [id number] 17:36:00 Test Item Value Reference Range Interpretation Comments UDS Note (test code = See Note 4(12/28/13 UDS Note) 11:36 AM) [facility] [id number] 17:36:00 Test Item Value Reference Range Interpretation Comments U Estela Scr (test code Negative *NA*(12/28/13 = U Estela Scr) 11:36 AM) [facility] [id number] 17:36:00 Test Item Value Reference Range Interpretation Comments U Amph Scr (test code Negative *NA*(12/28/13 = U Amph Scr) 11:36 AM) [facility]
[2021-09-30] MEDS ORDERED: TETANUS & DIPHTHERIA TOX,ADULT 0.5 ML VIAL ONE (00:05)
[2021-09-30] MEDS ORDERED: HYDROCODONE/APAP 5/325 MG TAB ONE ×2 (00:15→01:04)
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
[2021-09-30 01:59] VITALS: BP 136/79; TEMP 98.4
[2021-09-30 02:01] VITALS: O2SAT 97
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
== END 2021-09-30 01:46 | disposition home or self-care (01) ==
LOC: ER 23:51
DX: S00.81XA Abrasion of other part of head, initial encounter (principal); S00.83XA Contusion of other part of head, initial encounter; M54.2 Cervicalgia; Z23 Encounter for immunization; I10 Essential (primary) hypertension; Z88.0 Allergy status to penicillin
CPT/HCPCS: 70450; 70486; 72125; 76377; 90471; 99284